=== PATIENT | female | born 1975 | race Caucasian/White ===

== ENCOUNTER 2017-05-06 14:58 | Inpatient (IN) ==
--- NOTE | 2017-05-06 19:20 | Emergency Department Note ---
Disposition Clinical Impression: Failure of outpatient treatment Cellulitis Qualifiers: Site of cellulitis: extremity Site of cellulitis of extremity: lower extremity Laterality: left Qualified Code(s): L03.116 - Cellulitis of left lower limb Disposition: Admitted As Inpatient Condition: Good Referrals: Lg Pinedo DO [Primary Care Provider] - Forms: ED Satisfaction Letter Extremity Problem HPI - General Chief complaint: ED Extremity Problem,Nontraumatic Stated complaint: Leg Pain Time Seen by Provider: 05/06/17 18:38 Source: patient Mode of arrival: private vehicle Limitations: no limitations Nursing Notes Reviewed: Yes Vital Signs Reviewed: Yes - History of Present Illness HPI Narrative: 41-year-old female history of fibromyalgia, 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 Patient reports that she was seen on the of this month at urgent care and was diagnosed with cellulitis. She was placed on Bactrim at that time. She was seen by her PCP on Wednesday and Keflex was added to her antibiotic regimen. She reports that today she was reevaluated and was referred here due to concern for swelling and that they would not be able to evaluated over the weekend. She denies any fevers at home. No nausea or vomiting. She has felt cold with chills. She reports compliance with her medications. She reports worsening swelling up into her leg and now also having pain in her right lower extremity. No history of DVT. No other complaints. Pt Subjective Complaint: extremity pain, extremity swelling Onset (ago): day(s) Consistency: constant Injury Location: left, right, lower extremity Pain Scale: 10 Quality: other (pain) Radiation: proximal Improves with: nothing Worsens with: nothing Associated symptoms: Reports: swelling. Denies: chest pain, shortness of breath , fever - Related Data Home Medications Medication Instructions Recorded Confirmed Certolizumab Pegol [Cimzia] 400 mg SQ Q4W 04/29/17 05/06/17 Gabapentin [Neurontin] 300 mg PO BID 04/29/17 05/06/17 Naproxen [Naprosyn] 500 mg PO BID 04/29/17 05/06/17 Oxycodone HCl/Acetaminophen 1 each PO QID PRN 04/29/17 05/06/17 [Percocet 10-325 mg Tablet] Tizanidine HCl 8 mg PO HS 04/29/17 05/06/17 Amitriptyline [Elavil] 25 mg PO HS 05/06/17 05/06/17 Aspirin Enteric Coated [Aspirin EC] 81 mg PO DAILY 05/06/17 05/06/17 Azathioprine [Imuran] 200 mg PO DAILY 05/06/17 05/06/17 Dicyclomine [Bentyl] 10 mg PO QID 05/06/17 05/06/17 Esomeprazole Magnesium [Nexium] 20 mg PO DAILY 05/06/17 05/06/17 Ferrous Sulfate 325 mg PO DAILY 05/06/17 05/06/17 Rizatriptan Benzoate [Maxalt] 10 mg PO DAILY PRN 05/06/17 05/06/17 Venlafaxine HCl [Venlafaxine HCl 150 mg PO DAILY 05/06/17 05/06/17 ER] cephALEXin [Keflex] 500 mg PO TID 05/06/17 05/06/17 Previous Rx's Medication Instructions Recorded Sulfamethoxazole/Trimeth DS 1 each PO BID #20 tablet 04/29/17 [Bactrim DS] Allergies Allergy/AdvReac Type Severity Reaction Status Date / Time No Known Allergies Allergy Verified 07/22/15 11:27 All systems ED: reviewed and negative except as stated. Constitutional: Reports: chills. Denies: fever Cardiovascular: Denies: chest pain Respiratory: Denies: dyspnea Gastrointestinal: Denies: abdominal pain, nausea, vomiting Musculoskeletal: Reports: joint swelling Integumentary: Reports: lesions Past Medical History - Past Medical History Attestation: Yes The following information was validated with the patient. Source: patient Medical history: Reports: fibromyalgia, GERD, migraine, other Surgical history: Reports: Psychiatric history: Reports: depression - Social History Smoking Status: Never smoker Smokeless Tobacco Status: No Alcohol use: Reports: none Drug use: Reports: none Physical Exam - General Limitations: no limitations General appearance: alert, in no apparent distress - Head Head exam: atraumatic, normocephalic, normal inspection - Eye Eye exam: Present: normal appearance, EOMI - ENT ENT exam: normal exam - Neck Neck exam: Present: normal inspection - Chest Chest inspection: Present: normal inspection, symmetric chest wall rise - Respiratory Respiratory exam: Present: normal lung sounds bilaterally - Cardiovascular Cardiovascular exam: Present: normal rhythm, tachycardia, normal heart sounds - Abdominal Exam Abdominal exam: Present: soft, Non-Tender. Absent: tenderness - Extremities Exam Extremities exam: Present: normal inspection, full ROM - Expanded Upper Extremity Exam Shoulder exam: Present: normal inspection, full ROM Arm exam: Present: normal inspection, full ROM Elbow exam: Present: normal inspection, full ROM Forearm/Wrist exam: Present: normal inspection, full ROM Hand exam: Present: normal inspection, full ROM - Expanded Lower Extremity Exam Hip/Pelvis exam: Present: normal inspection, full ROM Upper leg exam: Present: normal inspection, full ROM Knee exam: Present: normal inspection, full ROM Lower leg exam: Present: normal inspection, full ROM, swelling Ankle exam: Present: tenderness (Tenderness to palpation along the medial and lateral malleolus. There is also diffuse swelling to the left foot. Tenderness in the posterior calf on the left leg decreased range of motion of the left ankle secondary to pain.) Foot/toe exam: Present: normal inspection, tenderness (Diffuse), swelling Neurovascular/Tendon exam: Absent: motor deficit, sensory deficit, tendon deficit Course Course Narrative: Patient seen and examined. Vital signs reviewed. We will check some labs including inflammatory markers. We will also get a DVT study of the lower extremities. - Reevaluation(s) Reevaluation #1: I discussed the results of lab work with the patient. Her DVT study was negative as well. Given her elevated ESR we will get a CT scan of the lower extremity to evaluate for osteomyelitis. Reevaluation #2: Discussed results of CT scan with the patient. We will start her antibiotics here and admitted to the hospitalist service for further outpatient therapy. Vital Signs Temperature 97.7 F 05/06/17 15:11 Pulse Rate 120 05/06/17 15:11 Respiratory Rate 18 05/06/17 15:11 Blood Pressure 138/85 05/06/17 15:11 O2 Sat by Pulse Oximetry 96 05/06/17 15:11 Temperature 97.7 F 05/06/17 15:11 Pulse Rate 90 05/06/17 20:49 Respiratory Rate 18 05/06/17 20:49 Blood Pressure 145/87 05/06/17 20:49 O2 Sat by Pulse Oximetry 99 05/06/17 20:49 Oxygen Delivery Oxygen Delivery Room Air Extremity Problem, Nontraumati - MDM Narrative Medical decision making narrative: 41-year-old female presents to the ER due to left fluxion really pain and swelling. She has been treated as an outpatient with 6 days of antibiotics with Bactrim and Keflex. She has seen provider's 3 times with most recently being referred here due to worsening swelling of the left lower extremity. She denies fevers at home. Her white count is elevated over 20. Her ESR is elevated at [address] scan is read by radiology shows no fluid collection or osteomyelitis. Patient given vancomycin and IV fluids. Will be admitted to the hospitalist service. - Lab Data Lab results reviewed: Yes I reviewed the patient's lab results. Result diagrams: 05/06/17 19:40 05/06/17 19:40 Lab Results 05/06/17 05/06/17 05/06/17 Range/Units 19:40 19:40 19:40 WBC 23.9 H (4.3-11.1) K/mcL RBC 3.86 (3.82-4.97) M/mcL Hgb 9.8 L (11.5-15.4) g/dL Hct 32.4 L (35.3-44.9) % MCV 83.9 (83.0-100.0) fL MCH 25.4 L (28.0-33.3) pg MCHC 30.2 L (31.6-35.5) g/dL RDW 15.1 H (11.5-14.5) % Plt Count 363 (140-400) K/mcL MPV 8.5 L (9.4-12.4) fL Seg Neutrophils % 68.0 % Band Neutrophils % 2.0 (0-4) % Lymphocytes % 19.0 % Monocytes % 4.0 % Eosinophils % 1.0 % Metamyelocytes % 3.0 H (0) % Myelocytes % 3.0 H (0) % Neutrophils # 16.7 H (1.6-8.9) K/mcL Lymphocytes # 4.5 (0.6-4.6) K/mcL Monocytes # 1.0 (0.0-1.3) K/mcL Eosinophils # 0.2 (0.0-0.6) K/mcL Nucleated RBCs/100 WBC 0.2 H (0) /100 WBC Polychromasia 1+ A (Not Present) ESR 129 H (0-15) mm/hr Sodium 136 (136-145) mEq/L Potassium 5.2 H (3.5-4.5) mEq/L Chloride 100 (98-109) mEq/L Carbon Dioxide 25 (19-29) mEq/L BUN 11 (7-20) mg/dL Creatinine 0.81 (0.57-1.11) mg/dL Est GFR ( Amer) > 60 (> 60) Est GFR (Non-Af Amer) > 60 (> 60) BUN/Creatinine Ratio 14 (6-26) Glucose 84 (70-99) mg/dL Calculated Osmolality 281 (280-300) Calcium 9.5 (8.6-10.8) mg/dL C-Reactive Protein 351 H (Less than 5) mg/L B-Natriuretic Peptide (0-100) pg/mL 05/06/17 Range/Units 19:40 WBC (4.3-11.1) K/mcL RBC (3.82-4.97) M/mcL Hgb (11.5-15.4) g/dL Hct (35.3-44.9) % MCV (83.0-100.0) fL MCH (28.0-33.3) pg MCHC (31.6-35.5) g/dL RDW (11.5-14.5) % Plt Count (140-400) K/mcL MPV (9.4-12.4) fL Seg Neutrophils % % Band Neutrophils % (0-4) % Lymphocytes % % Monocytes % % Eosinophils % % Metamyelocytes % (0) % Myelocytes % (0) % Neutrophils # (1.6-8.9) K/mcL Lymphocytes # (0.6-4.6) K/mcL Monocytes # (0.0-1.3) K/mcL Eosinophils # (0.0-0.6) K/mcL Nucleated RBCs/100 WBC (0) /100 WBC Polychromasia (Not Present) ESR (0-15) mm/hr Sodium (136-145) mEq/L Potassium (3.5-4.5) mEq/L Chloride (98-109) mEq/L Carbon Dioxide (19-29) mEq/L BUN (7-20) mg/dL Creatinine (0.57-1.11) mg/dL Est GFR ( Amer) (> 60) Est GFR (Non-Af Amer) (> 60) BUN/Creatinine Ratio (6-26) Glucose (70-99) mg/dL Calculated Osmolality (280-300) Calcium (8.6-10.8) mg/dL C-Reactive Protein (Less than 5) mg/L B-Natriuretic Peptide 22 (0-100) pg/mL - Radiology Data Radiology results reviewed: Yes I reviewed the patient's radiology results. Lower Extremity CT 05/06/17 20:14 IMPRESSION: 1. Subcutaneous edema most pronounced at the ankle and dorsal foot with no organized drainable fluid collection identified to suggest abscess. Correlate clinically for cellulitis. 2. Nonspecific moderate tibiotalar and subtalar joint effusions. 3. Small knee effusion. 4. No evidence for osteomyelitis. D/ / Andre Mota MD / Andre Mota MD Interpreting Provider: Andre Mota MD S.[place] - [place] Situation: Demographics, MOA Background: Presenting Complaint, Relevant PMH, Meds, & Allergies Assessment: Vital Signs, Course and respsone to treatment, Exam Concerns, Patient/Family Expectation, Pertinant Lab Results, Outstanding Labs Recommendation: Barrier(s) to disposition, Recommendation based on pending studies, treatments, or consults S.Reagan Report Given to: Dr. Cong Melissa Repor Time: 21:56 Attestation Statement - Attestation Attestation: Patient was seen with resident physician. I reviewed the history, physical, assessment and plan, and agree with the findings. I also personally evaluated this patient and had [id number] time with this patient. 38 through old female presents emergency department with worsening leg pain bilaterally. Patient been seen by healthcare provider 2 times in the last week or so for cellulitis in the medial aspect left ankle. Patient notes that for the last several days however she has had increased swelling of the legs bilaterally. She has no history of blood clots but she does have factor V deficiency. Patient also denies chest pain or shortness of breath at this time. She has not had fevers or chills. She said that the cellulitis has at least been contained within the markings that were done several days ago. On examination vital signs are stable ENT is normal. Heart and lungs are normal. Abdomen is soft and nontender. Extremities 2+ pitting edema bilaterally left slightly worse than right. Mild cellulitic changes can be seen on the left medial ankle. Distal pulses are intact. Neurologically intact. ED course we will get basic lab tests, and we will do bilateral ultrasound of lower extremities to rule out DVT. We will disposition according to the findings of the workup. Patient's ESR was significantly elevated as well as her white blood cell count. This prompted a concern for osteomyelitis or deeper space infection and certainly poorly controlled cellulitis. CT scan of the leg did not reveal any cellulitis, and DVT studies were negative for clots. Patient was started on IV antibiotics and the hospitalist was notified. Seems of the patient's just had failure of treatment for cellulitis as an outpatient. We will need to admit to the hospital for further evaluation and treatment. Agree with resident physician assessment and plan.
[2017-05-06] MEDS ORDERED: 0.9 % Sodium Chloride 1,000 ML IVC ONE (19:23)
[2017-05-06 19:54] LABS: Hematocrit 32.4 % (35.3-44.9); Hemoglobin 9.8 g/dL (11.5-15.4); Mean Corpuscular HGB Conc 30.2 g/dL (31.6-35.5); Mean Corpuscular Hemoglobin 25.4 pg (28.0-33.3); Mean Corpuscular Volume 83.9 fL (83.0-100.0); Mean Platelet Volume 8.5 fL (9.4-12.4); Nucleated Red Blood Cells 0.2 /100 WBC (0); Platelet Count 363 K/mcL (140-400); Red Blood Count 3.86 M/mcL (3.82-4.97); Red Cell Distribution Width 15.1 % (11.5-14.5)
[2017-05-06 20:06] LABS: BUN/Creatinine Ratio 14 (6-26); Blood Urea Nitrogen 11 mg/dL (7-20); Calcium 9.5 mg/dL (8.6-10.8); Carbon Dioxide 25 mEq/L (19-29); Chloride 100 mEq/L (98-109); Glucose 84 mg/dL (70-99); Osmolality,Calculated 281 (280-300); Potassium 5.2 mEq/L (3.5-4.5); Sodium 136 mEq/L (136-145); eGFR For African Americans > 60 (> 60); eGFR For Non-African Americans > 60 (> 60)
[2017-05-06] MEDS ORDERED: *HR* Morphine 2 MG/ML SYRINGE IVP ONE (20:20)
[2017-05-06 20:39] LABS: C-Reactive Protein 351 mg/L (Less than 5)
[2017-05-06 20:43] LABS: Eosinophils # 0.2 K/mcL (0.0-0.6); Lymphocytes # 4.5 K/mcL (0.6-4.6); Neutrophils # 16.7 K/mcL (1.6-8.9)
[2017-05-06 20:46] LABS: Polychromasia 1+ (Not Present)
[2017-05-06] MEDS ORDERED: Ampicillin/Sulbactam 3,000 MG in 0.9 % Sodium Chloride Mini Bag 100 ML IVPB ONE (21:11)
[2017-05-06] MEDS ORDERED: Vancomycin 1,750 MG in D5% in Water 250 ML IVPB ONE (21:55)
[2017-05-06] MEDS ORDERED: Calcium Gluconate 1,000 MG in D5% in Water 100 ML IVPB ONE (23:30)
[2017-05-06] MEDS ORDERED: Sodium Bicarbonate 50 MEQ/50 ML VIAL IVP ONE (23:30)
[2017-05-07] MEDS ORDERED: 0.9 % Sodium Chloride 1,000 ML IVC ONE (00:32)
--- NOTE | 2017-05-07 00:46 | Internal Med History&Physical ---
Date of Encounter: 05/07/17 Time of Encounter: 00:44 Assessment and Plan (1) Factor 5 Leiden mutation, heterozygous Current visit: Yes Status: Acute She was diagnosed after counseling after several family members were diagnosed with 5 Leiden in hand venous thromboembolism. She never had venous thromboembolism before. she is an aspirin prophylactically. Doppler were performed in the emergency room and reportedly negative for DVT. (2) Cellulitis Current visit: Yes Status: Acute Feels outpatient therapy she received about 6 days of Bactrim and 2 days of Keflex. Will start vancomycin and Zosyn. Blood cultures will be performed. Significantly elevated ESR and CRP. CT scan of the public shows no evidence of abscess or indication for osteomyelitis. She has a wound in the left for the past 3 weeks foot which is probably the source Qualifiers: Site of cellulitis: extremity Site of cellulitis of extremity: lower extremity Laterality: left Qualified Code(s): L03.116 - Cellulitis of left lower limb Internal Medicine - H&P: HPI Chief complaint: leg swelling and pain History of present illness: Ms. Duran is a 41 year old female with history of factor 5 Leiden mutation with no previous history of Venous thromboembolism, history of Crohn's disease on immunosuppressant medications, history of ankylosing spondylitis, presents emergency room today with left ankle pain and swelling. Patient was diagnosed with cellulitis of the left ankle 6 days ago was started on Bactrim completed 6 days so for 2 days ago she had seen her PCP for follow-up and she was also started on Keflex to which is been compliant. She notices no improvement in her symptoms in fact she notices increased pain redness and swelling in the left ankle. She also started experiencing fevers up to 101 at home. She had developed 1st performed in the emergency room shows no evidence of DVT. She had a wound in the left foot 3 weeks ago with no drainage currently. Past Med Surg Social Fam HX - Past Medical History Medical history: fibromyalgia, GERD, migraine, other Psychiatric history: depression - Past Surgical History Surgical History: - Social History Smoking Status: Never smoker Smokeless Tobacco Status: No Alcohol use: none Drug use: none - Family History Father Living Status: Still Living Hx Family Cardiac Disorders: Yes Hx Family Endocrine Disorder: Yes Internal Medicine - H&P: Meds Certolizumab Pegol [Cimzia] 400 mg SQ Q4W 04/29/17 [History] Gabapentin [Neurontin] 300 mg PO BID 04/29/17 [History] Naproxen [Naprosyn] 500 mg PO BID 04/29/17 [History] Oxycodone HCl/Acetaminophen [Percocet 10-325 mg Tablet] 1 each PO QID PRN [History] Sulfamethoxazole/Trimeth DS [Bactrim DS] 1 each PO BID #20 tablet 04/29/17 [Rx] Tizanidine HCl 8 mg PO HS 04/29/17 [History] Amitriptyline [Elavil] 25 mg PO HS 05/06/17 [History] Aspirin Enteric Coated [Aspirin EC] 81 mg PO DAILY 05/06/17 [History] Azathioprine [Imuran] 200 mg PO DAILY 05/06/17 [History] Dicyclomine [Bentyl] 10 mg PO QID 05/06/17 [History] Esomeprazole Magnesium [Nexium] 20 mg PO DAILY 05/06/17 [History] Ferrous Sulfate 325 mg PO DAILY 05/06/17 [History] Rizatriptan Benzoate [Maxalt] 10 mg PO DAILY PRN 05/06/17 [History] Venlafaxine HCl [Venlafaxine HCl ER] 150 mg PO DAILY 05/06/17 [History] cephALEXin [Keflex] 500 mg PO TID 05/06/17 [History] Allergies No Known Allergies Allergy (Verified 07/22/15 11:27) All Systems PM: A 10-system review of systems was performed and is negative for pertinent findings except as documented above in the HPI. Review of systems: 10 point review systems is negative except for HPI - Constitutional Vitals: Temp Pulse Resp BP Pulse Ox 98.8 F 94 14 128/83 100 05/06/17 22:44 05/06/17 22:44 05/06/17 22:44 05/06/17 22:44 05/06/17 22:44 Exam: Gen.: patient is alert oriented times 3 not in distress cardiac: Normal S1, S2, no additional sounds or murmurs chest: Clear to auscultation Abdomen: Soft, nontender No rebound lower extremity redness warmth tenderness around medial malleolus Neuro: no focal deficits Internal Med - H&P Results - Labs CBC & Chem 7: 05/06/17 19:40 06/15/17 19:40
[2017-05-07] MEDS ORDERED: Piperacillin/Tazobactam 3.375 GM in D5% in Water (Mini-Bag+) 100 ML IVPB SCH ×2 (01:00→03:00)
[2017-05-07] MEDS ORDERED: Vancomycin 1,750 MG in D5% in Water 250 ML IVPB SCH (01:00)
[2017-05-07 01:01] LABS: Hematocrit 26.8 % (35.3-44.9); Hemoglobin 8.5 g/dL (11.5-15.4); Mean Corpuscular HGB Conc 31.7 g/dL (31.6-35.5); Mean Corpuscular Hemoglobin 25.7 pg (28.0-33.3); Mean Platelet Volume 7.8 fL (9.4-12.4); Nucleated Red Blood Cells 0.4 /100 WBC (0); Platelet Count 339 K/mcL (140-400); Red Blood Count 3.31 M/mcL (3.82-4.97); Red Cell Distribution Width 14.6 % (11.5-14.5)
[2017-05-07] MEDS: *HR* Morphine 2 MG/ML SYRINGE IVP PRN ×3 (01:15→09:38)
[2017-05-07 01:22] LABS: BUN/Creatinine Ratio 12 (6-26); Blood Urea Nitrogen 10 mg/dL (7-20); Calcium 8.8 mg/dL (8.6-10.8); Carbon Dioxide 27 mEq/L (19-29); Chloride 101 mEq/L (98-109); Glucose 93 mg/dL (70-99); Magnesium 1.7 mg/dL (1.6-2.6); Osmolality,Calculated 279 (280-300); Potassium 4.4 mEq/L (3.5-4.5); Sodium 135 mEq/L (136-145); eGFR For African Americans > 60 (> 60); eGFR For Non-African Americans > 60 (> 60)
[2017-05-07 01:24] LABS: C-Reactive Protein 288 mg/L (Less than 5)
[2017-05-07 01:31] LABS: Eosinophils # 0.4 K/mcL (0.0-0.6); Lymphocytes # 3.9 K/mcL (0.6-4.6); Monocytes # 0.8 K/mcL (0.0-1.3); Neutrophils # 13.2 K/mcL (1.6-8.9)
[2017-05-07 01:34] LABS: Hypochromasia Present (Not Present)
[2017-05-07] MEDS: 0.9 % Sodium Chloride 1,000 ML IVC SCH ×2 (03:00→16:46)
[2017-05-07] MEDS: *HR* Heparin 5,000 UNIT/ML VIAL SQ SCH ×3 (04:23→20:41)
[2017-05-07] MEDS: Ondansetron 4 MG/2 ML VIAL IVP PRN ×2 (04:23→20:58)
[2017-05-07] MEDS ORDERED: Calcium Gluconate 1,000 MG in D5% in Water 100 ML IVPB ONE (04:30)
[2017-05-07] MEDS: Vancomycin 1,750 MG in D5% in Water 500 ML IVPB SCH ×2 (08:15→20:42)
[2017-05-07] MEDS: *HR* HYDROcodone/Acet 5/325 mg TABLET PO PRN ×2 (08:48→23:09)
[2017-05-07] MEDS: Venlafaxine XR (24 HR) 150 MG CAP.ER.24H PO SCH (09:44)
[2017-05-07] MEDS: Gabapentin 300 MG CAPSULE PO SCH ×2 (09:44→20:41)
[2017-05-07] MEDS: Aspirin Enteric Coated 81 MG Tablet PO SCH (09:44)
[2017-05-07] MEDS: Piperacillin/Tazobactam 3.375 GM in D5% in Water (Mini-Bag+) 100 ML IVPB SCH ×2 (11:03→19:06)
--- NOTE | 2017-05-07 16:10 | Internal Med Progress Note ---
Date of Encounter: 05/07/17 Time of Encounter: 16:08 - Assessment and plan (1) Cellulitis Current Visit: Yes Status: Acute Qualifiers: Site of cellulitis: extremity Site of cellulitis of extremity: lower extremity Laterality: left Qualified Code(s): L03.116 - Cellulitis of left lower limb (2) Pain in left ankle and joints of left foot Current Visit: Yes Status: Acute Qualifiers: Qualified Code(s): M25.572 - Pain in left ankle and joints of left foot (3) Effusion of ankle joint, left Current Visit: Yes Status: Acute - Subjective Interval history: Ms. Tiffany Duran is a 41-year-old female who was admitted for ankle cellulitis but she notices almost a week ago but did not seek any attention right away. Apparently she was in the words just 3 weeks ago and had some separation around her left big toe. Although she is ambulatory but it hurts when she be a weight on her foot. CT ankle was done which showed effusion and tibiotalar and knee joint besides soft tissue swelling but no evidence of osteomyelitis. However her CRP and her white count is quite elevated. No bandemia though. Patient is currently on vancomycin and Zosyn. Considering the fact that her CRP was more than 350 and white cell count was more than 20,000 which is coming down we will consult podiatry. I did check with the orthopedist on-call who has suggested to consult podiatry for ankle effusion. - Constitutional Vitals: Temp Pulse Resp BP Pulse Ox 98.9 F 98 16 117/64 96 05/07/17 09:51 05/07/17 09:51 05/07/17 09:51 05/07/17 09:51 05/07/17 09:51 Internal Medicine: Result - Labs CBC & Chem 7: 05/07/17 00:52 05/07/17 00:52 Consult Discharge Plan - Plan Referrals: Lg Pinedo DO [Primary Care Provider] -
--- NOTE | 2017-05-07 18:30 | Podiatry Consult Note ---
Date of Encounter: 05/07/17 Time of Encounter: 05:50 Assessment and Plan (1) Cellulitis Current visit: Yes Status: Acute left ankle localized cellulitis appears to be responding to IV abx. c/w IV abx per primary team. fluid aspirated from left ankle joint per procedure note. cultures sent to lab and fluid to cytology. f/u cultures of fluid, and fluid cytology for total cell count, wbc, protein, glucose, uric acid, stds, etc. ordered lymes Ab for AM. ice and elvation. monitor wbc count. if does not conintue to trend better will consider MRI but on CT no drainage abscess identified. Qualifiers: Site of cellulitis: extremity Site of cellulitis of extremity: lower extremity Laterality: left Qualified Code(s): L03.116 - Cellulitis of left lower limb History of Present Illness HPI: Ms. Duran is a 41 year old female who says a week ago she developed some redness around her left ankle on the inside. She did not think much of it at first and it started getting worse so she saw a practicioner who gave her bactrim. It was not getting better and she saw her family doctor who add keflex. There was no improvement in the redness when she was re-evaluated so she was referred to [place] for admission. She says it is a severe pain and swelling around her left ankle. denies any recent cough. She says the redness has gone down since being admitted and getting IV antibiotics. She does not remember being bit by any insects or spiders. She did go hiking a week ago and has a superficial wound on her left foot near the big toe from hitting a stick but says she has not had any redness around this area of her foot and only the left ankle. Does not remember seeing any or pulling off any ticks of her body. Denies injury. Past Med Surg Social Fam HX - Past Medical History Medical history: fibromyalgia, GERD, migraine, other Psychiatric history: depression - Past Surgical History Surgical History: - Social History Smoking Status: Never smoker Smokeless Tobacco Status: No Alcohol use: none Drug use: none - Family History Father Living Status: Still Living Hx Family Cardiac Disorders: Yes Hx Family Endocrine Disorder: Yes Medications and Allergies Certolizumab Pegol [Cimzia] 400 mg SQ Q4W 04/29/17 [History] Gabapentin [Neurontin] 300 mg PO BID 04/29/17 [History] Naproxen [Naprosyn] 500 mg PO BID 04/29/17 [History] Oxycodone HCl/Acetaminophen [Percocet 10-325 mg Tablet] 1 each PO QID PRN [History] Sulfamethoxazole/Trimeth DS [Bactrim DS] 1 each PO BID #20 tablet 04/29/17 [Rx] Tizanidine HCl 8 mg PO HS 04/29/17 [History] Amitriptyline [Elavil] 25 mg PO HS 05/06/17 [History] Aspirin Enteric Coated [Aspirin EC] 81 mg PO DAILY 05/06/17 [History] Azathioprine [Imuran] 200 mg PO DAILY 05/06/17 [History] Dicyclomine [Bentyl] 10 mg PO QID 05/06/17 [History] Esomeprazole Magnesium [Nexium] 20 mg PO DAILY 05/06/17 [History] Ferrous Sulfate 325 mg PO DAILY 05/06/17 [History] Rizatriptan Benzoate [Maxalt] 10 mg PO DAILY PRN 05/06/17 [History] Venlafaxine HCl [Venlafaxine HCl ER] 150 mg PO DAILY 05/06/17 [History] cephALEXin [Keflex] 500 mg PO TID 05/06/17 [History] Allergies No Known Allergies Allergy (Verified 07/22/15 11:27) All Systems Reviewed: A 10-system review of systems was performed and is negative for pertinent findings except as documented above in the HPI. Physical Exam - Constitutional Vitals: Temp Pulse Resp BP Pulse Ox 98.2 F 91 16 111/72 99 05/07/17 15:51 05/07/17 15:51 05/07/17 15:51 05/07/17 15:51 05/07/17 15:51 General appearance: no acute distress Exam: left ankle moderate pitting edema, CFT < 3 sec x 5 digits left foot. left medial ankle resolving erythema, no openings or puncture sites at this location. no lymphangitic streaking, superficial circular wound medial aspect of the 1st MTP joint without erythema. pain with motion of the left ankle joint. sensation intact to light touch. Results - Labs Result Diagrams: 05/07/17 00:52 05/07/17 00:52 Labs: Abnormal lab results WBC 19.4 K/mcL (4.3-11.1) H 05/07/17 00:52 RBC 3.31 M/mcL (3.82-4.97) L 05/07/17 00:52 Hgb 8.5 g/dL (11.5-15.4) L 05/07/17 00:52 Hct 26.8 % (35.3-44.9) L 05/07/17 00:52 MCV 81.0 fL (83.0-100.0) L 05/07/17 00:52 MCH 25.7 pg (28.0-33.3) L 05/07/17 00:52 RDW 14.6 % (11.5-14.5) H 05/07/17 00:52 MPV 7.8 fL (9.4-12.4) L 05/07/17 00:52 Metamyelocytes % 2.0 % (0) H 05/07/17 00:52 Myelocytes % 4.0 % (0) H 05/07/17 00:52 Neutrophils # 13.2 K/mcL (1.6-8.9) H 05/07/17 00:52 Nucleated RBCs/100 WBC 0.4 /100 WBC (0) H 05/07/17 00:52 Polychromasia 1+ (Not Present) A 05/06/17 19:40 Hypochromasia Present (Not Present) A 05/07/17 00:52 ESR 129 mm/hr (0-15) H 05/06/17 19:40 Sodium 135 mEq/L (136-145) L 05/07/17 00:52 Calculated Osmolality 279 (280-300) L 05/07/17 00:52 C-Reactive Protein 256 mg/L (Less than 5) H 05/07/17 15:50 All other labs normal. Consult Discharge Plan - Plan Referrals: Lg Pinedo, [Primary Care Provider] -
--- NOTE | 2017-05-07 18:44 | Procedure Note ---
Date of procedure: 05/07/17 Pre-op diagnosis: left ankle effusion Post-op diagnosis: same Procedure: aspiration of left ankle joint The nature of the procedure (left ankle joint aspiration) was explained to the patient in detail. The risks vs benefits were also explained as well as potential complications of the procedure infection, bleeding, swelling, numbness , tingling, nerve damage, worsening of pain, wound healing problems, etc. prior to procedure. Patient gave verbal consent to proceed with left ankle joint aspiration. The left ankle was prepped with betadine. The side and location ( left ankle joint) were confirmed and a #18 gauge need on a syringe was inserted into the left ankle joint from the lateral side of the ankle joint where there was no cellulitis of the skin. 3cc of yellow brown fluid was obtained. The fluid was sent to microbiology and to cytology for evaluation. Adequate hemostasis was present at the conclusion and bandaid placed over aspiration site. JOSE bandage placed on foot. Ice and elevation okay. Anesthesia: none Surgeon: Gómez Gutierrez Pathology: other (fluid from left ankle sent to cytology, cultures sent to micro for gram stain, aerobic and anaerobic culture) Condition: stable Disposition: floor
[2017-05-07 18:55] LABS: Source,Synovial Fluid LEFT ANKLE
[2017-05-07 19:15] LABS: Glucose,Synovial Fluid 74 mg/dL (No Ref Range)
[2017-05-07 19:34] LABS: Appearance,Synovial Fluid Clear (Clear-Hazy); Color,Synovial Fluid Straw (Straw)
[2017-05-08] MEDS: Piperacillin/Tazobactam 3.375 GM in D5% in Water (Mini-Bag+) 100 ML IVPB SCH ×3 (02:58→18:36)
[2017-05-08 05:01] LABS: Hemoglobin 7.9 g/dL (11.5-15.4); Mean Corpuscular HGB Conc 30.4 g/dL (31.6-35.5); Mean Corpuscular Hemoglobin 25.2 pg (28.0-33.3); Mean Corpuscular Volume 82.8 fL (83.0-100.0); Mean Platelet Volume 8.1 fL (9.4-12.4); Nucleated Red Blood Cells 0.2 /100 WBC (0); Platelet Count 351 K/mcL (140-400); Red Blood Count 3.14 M/mcL (3.82-4.97)
[2017-05-08] MEDS: 0.9 % Sodium Chloride 1,000 ML IVC SCH ×2 (05:10→15:35)
[2017-05-08] MEDS: *HR* Heparin 5,000 UNIT/ML VIAL SQ SCH ×3 (05:11→21:01)
[2017-05-08 05:29] LABS: Alanine Aminotransferase 15 Units/L (0-55); Albumin/Globulin Ratio 0.4 (1.1-2.2); Alkaline Phosphatase 117 Units/L (38-126); Aspartate Amino Transferase 9 Units/L (5-34); BUN/Creatinine Ratio 9 (6-26); Bilirubin,Total 0.3 mg/dL (0.2-1.2); Blood Urea Nitrogen 8 mg/dL (7-20); Calcium 8.8 mg/dL (8.6-10.8); Carbon Dioxide 25 mEq/L (19-29); Chloride 106 mEq/L (98-109); Globulin 4.5 g/dL (2.4-3.5); Glucose 93 mg/dL (70-99); Osmolality,Calculated 286 (280-300); Potassium 4.3 mEq/L (3.5-4.5); Sodium 139 mEq/L (136-145); Total Protein 6.5 g/dL (6.0-8.3); eGFR For African Americans > 60 (> 60); eGFR For Non-African Americans > 60 (> 60)
[2017-05-08 05:43] LABS: Lymphocytes # 3.7 K/mcL (0.6-4.6); Monocytes # 0.8 K/mcL (0.0-1.3); Neutrophils # 13.8 K/mcL (1.6-8.9)
[2017-05-08 05:44] LABS: Platelet Estimate Normal (Normal); Polychromasia 1+ (Not Present)
[2017-05-08] MEDS: Venlafaxine XR (24 HR) 150 MG CAP.ER.24H PO SCH (08:45)
[2017-05-08] MEDS: Aspirin Enteric Coated 81 MG Tablet PO SCH (08:45)
[2017-05-08] MEDS: Gabapentin 300 MG CAPSULE PO SCH ×2 (08:45→21:01)
[2017-05-08] MEDS: *HR* HYDROcodone/Acet 5/325 mg TABLET PO PRN ×2 (08:56→22:15)
[2017-05-08] MEDS: Vancomycin 1,750 MG in D5% in Water 500 ML IVPB SCH (09:29)
--- NOTE | 2017-05-08 12:36 | Electrocardiograph Report ---
[address] [address] Test Date: 2017-05-07 Pat Name: Tiffany Duran Department: 114 Room: [facility] Gender: F Tobacco Curer: CPB : 1975 Requested By: Jeffy Cordova Order Number: [id number] Reading MD: German Daniels Measurements Intervals [place] Rate: 99 P: 50 MI: 157 QRS: 37 QRSD: 81 T: 30 QT: 311 QTc: 368 Interpretive Statements SINUS RHYTHM LOW QRS VOLTAGE IN PRECORDIAL LEADS Electronically Signed On 05-08-2017 12:34:22 EDT by German Daniels
--- NOTE | 2017-05-08 13:46 | Venous Imaging Report ---
LE Venous Duplex Patient Name:Tiffany Duran Order Number:[id number] Procedure Date:05/06/2017 Date:1975Age:41 yrs Gender:Female Location:[facility] ED Room #: ER30 Gill Box Fixer:Miranda Gregory RDCS Referring MD:Khai Werner DO director of golf:Lg Pinedo DO Reading MD:Fortino Beltrán MD , FACS Primary Indications:Swelling of limb Secondary Indications: Risk Factors Yes/No Anticoagulants Yes Factor Five Yes Impressions: Bilateral lower extremity: normal superficial and deep exam. Recommendations: Preliminary given to Dr Werner in ED. Findings Venous Duplex Results: Right: Venous imaging of the lower extremity reveals full patency and normal vessel compressibility of the right distal iliac, right common femoral, right superficial femoral, right popliteal, right posterior tibial, right peroneal, right great saphenous and right lesser saphenous. Doppler signals in the evaluated veins were normal. Left: Venous imaging of the lower extremity reveals full patency and normal vessel compressibility of the left distal iliac, left common femoral, left superficial femoral, left popliteal, left posterior tibial, left peroneal, left great saphenous and left lesser saphenous. Doppler signals in the evaluated veins were normal. Prior Study: No prior study available for comparison. Lower Extremity Venous Duplex Side Vein Compress Spontaneous Flow Augment Diameter (cm) Depth (cm) Right Distal Iliac Normal Yes Phasic Yes Right Common Femoral Normal Yes Phasic Yes Right Superficial Femoral Normal Yes Phasic Yes Right Popliteal Normal Yes Phasic Yes Right Posterior Tibial Normal Yes Phasic Yes Right Peroneal Normal Yes Phasic Yes Right Great Saphenous Normal Yes Phasic Yes Right Lesser Saphenous Normal Yes Phasic Yes Left Distal Iliac Normal Yes Phasic Yes Left Common Femoral Normal Yes Phasic Yes Left Superficial Femoral Normal Yes Phasic Yes Left Popliteal Normal Yes Phasic Yes Left Posterior Tibial Normal Yes Phasic Yes Left Peroneal Normal Yes Phasic Yes Left Great Saphenous Normal Yes Phasic Yes Left Lesser Saphenous Normal Yes Phasic Yes Updated by Fortino Beltrán MD, FACS on 05/08/2017 1:39:02 PM Fortino Beltrán MD electronically signed on 05/08/2017 1:39:24 PM with status of Final
--- NOTE | 2017-05-08 14:42 | Internal Med Progress Note ---
Date of Encounter: 05/08/17 Time of Encounter: 14:40 - Assessment and plan (1) Cellulitis Current Visit: Yes Status: Acute Qualifiers: Site of cellulitis: extremity Site of cellulitis of extremity: lower extremity Laterality: left Qualified Code(s): L03.116 - Cellulitis of left lower limb (2) Pain in left ankle and joints of left foot Current Visit: Yes Status: Acute Qualifiers: Qualified Code(s): M25.572 - Pain in left ankle and joints of left foot (3) Effusion of ankle joint, left Current Visit: Yes Status: Acute (4) Anemia Current Visit: Yes Status: Acute Qualifiers: Anemia type: unspecified type Qualified Code(s): D64.9 - Anemia, unspecified - Subjective Interval history: Ms. Tiffany Duran is a 41-year-old female who was admitted for ankle cellulitis but she notices almost a week ago but did not seek any attention right away. Apparently she was in the words just 3 weeks ago and had some separation around her left big toe. Although she is ambulatory but it hurts when she be a weight on her foot. CT ankle was done which showed effusion and tibiotalar and knee joint besides soft tissue swelling but no evidence of osteomyelitis. However her CRP and her white count is quite elevated. No bandemia though. Patient is currently on vancomycin and Zosyn. Considering the fact that her CRP was more than 350 and white cell count was more than 20,000 which is coming down we will consult podiatry. I did check with the orthopedist on-call who has suggested to consult podiatry for ankle effusion. Podiatry has already date left ankle aspiration and cultures are pending. Hemoglobin is only 8.2. Check stool Hemoccult and iron studies. - Constitutional Vitals: Temp Pulse Resp BP Pulse Ox 99.0 F 108 18 120/74 94 05/08/17 10:51 05/08/17 10:51 05/08/17 10:51 05/08/17 10:51 05/08/17 10:51 - Head Head exam: Present: atraumatic, normocephalic - Eye Eye exam: Present: PERRL, conjuntiva pink, sclera anicteric Pupils: Present: PERRL - Neck Neck exam general surgery: Present: supple, trachea midline. Absent: lymphadenopathy - Respiratory Respiratory exam: Present: CTAB. Absent: accessory muscle use, rales, rhonchi, wheezes - Cardiovascular Cardiovascular exam: Present: RRR, +S1, +S2. Absent: diastolic murmur, gallop, rubs, systolic murmur - GI/Abdominal GI/Abdominal exam: Present: normal bowel sounds, soft, no peritoneal signs. Absent: distended, tenderness - Extremities Exam Extremities exam: Present: tenderness, warm, radial pulses palpable and symetrical. Absent: calf tenderness, cyanotic, pedal edema Additional comments: Right buttock area examined. Redness has crossed over the markers but skin is relatively less shiny and less red. It is laminating machine tender and indurated. Of the 3 incision wounds which are packed to still losing some drainage but one is becoming dry. - Neurological Exam Neurological exam: Present: CN II-XII intact, oriented X3, no focal deficits. Absent: pronater drift, facial droop, speech deficit - Skin Skin exam: Present: dry, intact Internal Medicine: Result - Labs CBC & Chem 7: 05/08/17 04:09 05/08/17 04:09 Labs: Short CBC 05/08/17 Range/Units 04:09 WBC 18.7 H (4.3-11.1) K/mcL Hgb 7.9 L (11.5-15.4) g/dL Hct 26.0 L (35.3-44.9) % Plt Count 351 (140-400) K/mcL Neutrophils # 13.8 H (1.6-8.9) K/mcL BMP 05/08/17 04:09 Sodium 139 Potassium 4.3 Chloride 106 Carbon Dioxide 25 BUN 8 Creatinine 0.89 Glucose 93 Calcium 8.8 Liver Function 05/08/17 Range/Units 04:09 Total Bilirubin 0.3 (0.2-1.2) mg/dL AST 9 (5-34) Units/L ALT 15 (0-55) Units/L Alkaline Phosphatase 117 (38-126) Units/L Albumin 2.0 L (3.5-5.0) g/dL Consult Discharge Plan - Plan Referrals: Lg Pinedo DO [Primary Care Provider] -
[2017-05-08] MEDS: Vancomycin 1,250 MG in D5% in Water 250 ML IVPB SCH (21:01)
[2017-05-08] MEDS: *HR* Morphine 2 MG/ML SYRINGE IVP PRN (23:37)
[2017-05-09] MEDS: Piperacillin/Tazobactam 3.375 GM in D5% in Water (Mini-Bag+) 100 ML IVPB SCH ×3 (02:50→19:59)
[2017-05-09] MEDS ORDERED: *HR* Morphine 2 MG/ML SYRINGE IVP ONE (02:59)
[2017-05-09] MEDS: *HR* HYDROcodone/Acet 5/325 mg TABLET PO PRN ×3 (04:08→23:26)
[2017-05-09] MEDS: 0.9 % Sodium Chloride 1,000 ML IVC SCH ×2 (04:09→15:57)
[2017-05-09] MEDS: *HR* Heparin 5,000 UNIT/ML VIAL SQ SCH ×3 (05:25→21:47)
[2017-05-09 05:40] LABS: Hematocrit 25.4 % (35.3-44.9); Hemoglobin 7.8 g/dL (11.5-15.4); Mean Corpuscular HGB Conc 30.7 g/dL (31.6-35.5); Mean Corpuscular Hemoglobin 25.8 pg (28.0-33.3); Mean Corpuscular Volume 84.1 fL (83.0-100.0); Nucleated Red Blood Cells 0.1 /100 WBC (0); Platelet Count 349 K/mcL (140-400); Red Blood Count 3.02 M/mcL (3.82-4.97); Red Cell Distribution Width 15.1 % (11.5-14.5)
[2017-05-09 05:55] LABS: % Iron Saturation 10 % (15-50); Alanine Aminotransferase 11 Units/L (0-55); Albumin 2.1 g/dL (3.5-5.0); Albumin/Globulin Ratio 0.5 (1.1-2.2); Alkaline Phosphatase 106 Units/L (38-126); Aspartate Amino Transferase 12 Units/L (5-34); BUN/Creatinine Ratio 7 (6-26); Bilirubin,Total 0.3 mg/dL (0.2-1.2); Blood Urea Nitrogen 6 mg/dL (7-20); Calcium 8.6 mg/dL (8.6-10.8); Carbon Dioxide 24 mEq/L (19-29); Chloride 107 mEq/L (98-109); Globulin 4.6 g/dL (2.4-3.5); Glucose 103 mg/dL (70-99); Iron 19 mcg/dL (50-170); Osmolality,Calculated 282 (280-300); Sodium 137 mEq/L (136-145); Total Protein 6.7 g/dL (6.0-8.3); Transferrin 134 mg/dL (180-382); eGFR For African Americans > 60 (> 60); eGFR For Non-African Americans > 60 (> 60)
[2017-05-09 06:08] LABS: Band Neutrophils % 7.3 % (0-4); Basophils # 0.4 K/mcL (0.0-0.2); Basophils % 1.8 %; Eosinophils # 0.4 K/mcL (0.0-0.6); Eosinophils % 1.8 %; Lymphocytes # 2.9 K/mcL (0.6-4.6); Lymphocytes % 14.5 %; Metamyelocytes % 5.5 % (0); Monocytes # 0.4 K/mcL (0.0-1.3); Monocytes % 1.8 %; Neutrophils # 15.1 K/mcL (1.6-8.9); Platelet Estimate Normal (Normal); Polychromasia 1+ (Not Present); Reactive Lymphocytes Present (Not Present); Segmented Neutrophils % 67.3 %
[2017-05-09] MEDS: Vancomycin 1,250 MG in D5% in Water 250 ML IVPB SCH ×2 (08:07→20:00)
[2017-05-09] MEDS: Aspirin Enteric Coated 81 MG Tablet PO SCH (08:08)
[2017-05-09] MEDS: Gabapentin 300 MG CAPSULE PO SCH ×2 (08:08→19:59)
[2017-05-09] MEDS: Venlafaxine XR (24 HR) 150 MG CAP.ER.24H PO SCH (08:08)
[2017-05-09] MEDS ORDERED: Ketorolac 15 MG/ML VIAL IVP PRN (09:05)
[2017-05-09] MEDS ORDERED: Furosemide 20 MG/2 ML VIAL IVP ONE (15:08)
--- NOTE | 2017-05-09 15:15 | Internal Med Progress Note ---
Date of Encounter: 05/09/17 Time of Encounter: 15:12 - Assessment and plan (1) Cellulitis Current Visit: Yes Status: Acute Qualifiers: Site of cellulitis: extremity Site of cellulitis of extremity: lower extremity Laterality: left Qualified Code(s): L03.116 - Cellulitis of left lower limb (2) Pain in left ankle and joints of left foot Current Visit: Yes Status: Acute Qualifiers: Qualified Code(s): M25.572 - Pain in left ankle and joints of left foot (3) Effusion of ankle joint, left Current Visit: Yes Status: Acute (4) Anemia Current Visit: Yes Status: Chronic Qualifiers: Anemia type: iron deficiency Iron deficiency anemia type: unspecified iron deficiency Qualified Code(s): D50.9 - Iron deficiency anemia, unspecified (5) Localized swelling of both lower legs Current Visit: Yes Status: Acute - Subjective Interval history: Ms. Tiffany Duran is a 41-year-old female who was admitted for ankle cellulitis but she notices almost a week ago but did not seek any attention right away. Apparently she was in the words just 3 weeks ago and had some separation around her left big toe. Although she is ambulatory but it hurts when she be a weight on her foot. CT ankle was done which showed effusion and tibiotalar and knee joint besides soft tissue swelling but no evidence of osteomyelitis. However her CRP and her white count is quite elevated. No bandemia though. Patient is currently on vancomycin and Zosyn. Considering the fact that her CRP was more than 350 and white cell count was more than 20,000 which is coming down we will consult podiatry. I did check with the orthopedist on-call who has suggested to consult podiatry for ankle effusion. Podiatry has already date left ankle aspiration and cultures are pending. Hemoglobin is only 8.2. Check stool Hemoccult and iron studies. 05/09 complaining of bilateral lower extremity pain and swelling especially swelling of knees more on the left and right. Examination of her legs raised the question of positive Homans sign. She is on the heparin prophylaxis. Ultrasound of the leg was done on admission which was negative however considering current change and repeat DVT ultrasound today. Her knees are swollen 2) left knee can be noticed with some effusion. We will wait to see the results of ultrasound. Low-dose Lasix given. She also has iron deficiency anemia hemoglobin is dropped to 7.8. She has history of Crohn disease and is known to have chronic anemia. Since she is iron deficient therefore will give iron dextrose 200 mg 3 days to cover at least half of apparent deficit and after that she can be improved. Because of leg swelling is not clear and that is why we are trying to rule it out by doing ultrasound of the lower extremity to rule out DVT. Her CRP is coming down and rash is improving. - Constitutional Vitals: Temp Pulse Resp BP Pulse Ox 98.5 F 105 16 118/74 99 05/09/17 10:23 05/09/17 10:23 05/09/17 10:23 05/09/17 10:23 05/09/17 10:23 - Head Head exam: Present: atraumatic, normocephalic - Eye Eye exam: Present: PERRL, conjuntiva pink, sclera anicteric Pupils: Present: PERRL - Neck Neck exam general surgery: Present: supple, trachea midline. Absent: lymphadenopathy - Respiratory Respiratory exam: Present: CTAB. Absent: accessory muscle use, rales, rhonchi, wheezes - Cardiovascular Cardiovascular exam: Present: RRR, +S1, +S2. Absent: diastolic murmur, gallop, rubs, systolic murmur - GI/Abdominal GI/Abdominal exam: Present: normal bowel sounds, soft, no peritoneal signs. Absent: distended, tenderness - Extremities Exam Extremities exam: Present: calf tenderness, joint swelling, pedal edema, tenderness, warm, radial pulses palpable and symetrical. Absent: cyanotic Additional comments: Gen. bilateral knee swelling more on left than on right quite tender. Patient has bilateral lower extremity swelling more on left than on right patient has left foot/ankle is swelling quite significant. Homans sign is negative. Good capillary refill though. - Neurological Exam Neurological exam: Present: CN II-XII intact, oriented X3, no focal deficits. Absent: pronater drift, facial droop, speech deficit - Skin Skin exam: Present: dry, intact Internal Medicine: Result - Labs CBC & Chem 7: 05/09/17 05:10 05/09/17 05:10 Labs: Short CBC 05/09/17 Range/Units 05:10 WBC 20.2 H (4.3-11.1) K/mcL Hgb 7.8 L (11.5-15.4) g/dL Hct 25.4 L (35.3-44.9) % Plt Count 349 (140-400) K/mcL Neutrophils # 15.1 H (1.6-8.9) K/mcL BMP 05/09/17 05:10 Sodium 137 Potassium 4.0 Chloride 107 Carbon Dioxide 24 BUN 6 L Creatinine 0.82 Glucose 103 H Calcium 8.6 Liver Function 05/09/17 Range/Units 05:10 Total Bilirubin 0.3 (0.2-1.2) mg/dL AST 12 (5-34) Units/L ALT 11 (0-55) Units/L Alkaline Phosphatase 106 (38-126) Units/L Albumin 2.1 L (3.5-5.0) g/dL Consult Discharge Plan - Plan Referrals: Lg Pinedo DO [Primary Care Provider] -
[2017-05-09] MEDS: Ketorolac 15 MG/ML VIAL IVP PRN ×2 (15:57→21:47)
[2017-05-09] MEDS ORDERED: Iron Dextran Complex 200 MG in 0.9 % Sodium Chloride 500 ML IVPB SCH (17:00)
[2017-05-09] MEDS: IRON DEXTRAN COMPLEX IVPB SCH (18:16)
[2017-05-09] MEDS: SODIUM CHLORIDE 0.9% IVPB SCH (18:16)
[2017-05-10] MEDS: Piperacillin/Tazobactam 3.375 GM in D5% in Water (Mini-Bag+) 100 ML IVPB SCH ×3 (03:07→22:23)
[2017-05-10 04:11] LABS: Hemoglobin 7.8 g/dL (11.5-15.4); Mean Corpuscular Hemoglobin 25.4 pg (28.0-33.3); Mean Corpuscular Volume 84.7 fL (83.0-100.0); Mean Platelet Volume 8.1 fL (9.4-12.4); Nucleated Red Blood Cells 0.2 /100 WBC (0); Platelet Count 385 K/mcL (140-400); Red Blood Count 3.07 M/mcL (3.82-4.97); Red Cell Distribution Width 15.1 % (11.5-14.5)
[2017-05-10 04:28] LABS: Alanine Aminotransferase 11 Units/L (0-55); Albumin/Globulin Ratio 0.4 (1.1-2.2); Alkaline Phosphatase 101 Units/L (38-126); Aspartate Amino Transferase 14 Units/L (5-34); BUN/Creatinine Ratio 9 (6-26); Bilirubin,Total 0.2 mg/dL (0.2-1.2); Blood Urea Nitrogen 8 mg/dL (7-20); C-Reactive Protein 130 mg/L (Less than 5); Calcium 8.7 mg/dL (8.6-10.8); Carbon Dioxide 25 mEq/L (19-29); Chloride 107 mEq/L (98-109); Globulin 4.7 g/dL (2.4-3.5); Glucose 98 mg/dL (70-99); Osmolality,Calculated 288 (280-300); Potassium 3.8 mEq/L (3.5-4.5); Sodium 140 mEq/L (136-145); Total Protein 6.7 g/dL (6.0-8.3); eGFR For African Americans > 60 (> 60); eGFR For Non-African Americans > 60 (> 60)
[2017-05-10 04:50] LABS: Anisocytosis 1+ (Not Present); Eosinophils # 0.8 K/mcL (0.0-0.6); Monocytes # 1.7 K/mcL (0.0-1.3); Neutrophils # 13.4 K/mcL (1.6-8.9); Platelet Estimate Normal (Normal)
[2017-05-10] MEDS: *HR* Heparin 5,000 UNIT/ML VIAL SQ SCH ×3 (05:11→22:24)
[2017-05-10] MEDS: Ketorolac 15 MG/ML VIAL IVP PRN (05:11)
[2017-05-10] MEDS: 0.9 % Sodium Chloride 1,000 ML IVC SCH ×2 (07:27→22:21)
[2017-05-10] MEDS ORDERED: *HR* HYDROcodone/Acet 5/325 mg TABLET ONE (08:14)
[2017-05-10] MEDS: *HR* HYDROcodone/Acet 5/325 mg TABLET PO PRN ×2 (08:31→22:21)
[2017-05-10] MEDS: Venlafaxine XR (24 HR) 150 MG CAP.ER.24H PO SCH (08:32)
[2017-05-10] MEDS: Gabapentin 300 MG CAPSULE PO SCH ×2 (08:32→22:21)
[2017-05-10] MEDS: Aspirin Enteric Coated 81 MG Tablet PO SCH (08:32)
[2017-05-10] MEDS: Vancomycin 1,000 MG in D5% in Water 250 ML IVPB SCH ×2 (10:39→22:22)
--- NOTE | 2017-05-10 12:20 | Gastroenterology Consult Note ---
<Lg Cortez - Last Filed: 05/10/17 12:18> Date of Encounter: 05/10/17 Time of Encounter: 11:10 - Assessment and plan (1) IBD (inflammatory bowel disease) Current Visit: Yes Status: Acute Assessment and plan: Last colonoscopy 07/22/[address] Landers showed inflammation found secondary to left-sided ulcerative colitis from rectum to transverse colon moderate in severity from rectum to sigmoid and mild in the descending and transverse colon. Plan for EGD and colonoscopy tomorrow. Clear liquid diet today, no red or purple. NPO at midnight. If unable tolerate NuLytely please use MiraLAX prep. If not clear by 6 AM, give 2 tap water enemas. (2) Anemia Current Visit: Yes Status: Chronic Assessment and plan: Continue to monitor CBC and transfuse PRBC as needed. Hgb 7.8 with MCV 84.7 and iron 19.FOBT was positive. Plan for EGD and colonoscopy tomorrow. Clear liquid diet today, no red or purple. NPO at midnight. If unable tolerate NuLytely please use MiraLAX prep. If not clear by 6 AM, give 2 tap water enemas. Qualifiers: Anemia type: iron deficiency Iron deficiency anemia type: unspecified iron deficiency Qualified Code(s): D50.9 - Iron deficiency anemia, unspecified (3) Cellulitis Current Visit: Yes Status: Acute Assessment and plan: Management per primary team. Qualifiers: Site of cellulitis: extremity Site of cellulitis of extremity: lower extremity Laterality: left Qualified Code(s): L03.116 - Cellulitis of left lower limb (4) Factor 5 Leiden mutation, heterozygous Current Visit: Yes Status: Acute - Time Spent With Patient Total time spent is greater than 50% in coordination of care (as documented) at patient's floor/unit and/or counseling patient: GI History of Present Illness - Data of Consult Patient: known to practice within the last 3 years Consult date: 05/10/17 Requesting Physician: Jeffy Cordova MD - Consult Narrative Reason for consult: OLEGARIO History of present illness: Ms. Duran is a 41 year old female with PMHx factor 5 Leiden mutation with no previous history of venous thromboembolism, Crohn's disease on immunosuppressant medications, chronic anemia, ankylosing spondylitis, presented to the ED with left ankle cellulitis. She was commenced with cellulitis 6 days prior to admission and was started on Bactrim which was then changed to Keflex. She reported no improvement in her symptoms and did not fact notice increased pain, redness, and swelling of her left ankle. Podiatry was consulted. We were consulted to evaluate her anemia. She was noted to be iron deficient with iron level of 19. Hgb on admission was 9.8 and today Hgb 7.8. Hgb 12.3 on 12/17/2016. Procedures: Colonoscopy 07/22/2015 Dr. Landers: Inflammation found secondary to left -sided ulcerative colitis from rectum to transverse colon moderate in severity from rectum to sigmoid and mild in the descending and transverse colon. EGD 07/22/2015 Dr. Landers: Duodenitis. NSAIDs: ASA Anticoagulation: None Past Med Surg Social Fam HX - Past Medical History Medical history: fibromyalgia, GERD, migraine, other Psychiatric history: depression - Past Surgical History Surgical History: - Social History Smoking Status: Never smoker Smokeless Tobacco Status: No Alcohol use: none Drug use: none - Family History Father Living Status: Still Living Hx Family Cardiac Disorders: Yes Hx Family Endocrine Disorder: Yes - Gastrointestinal Gastrointestinal: Present: as per HPI - Constitutional Constitutional: as per HPI - EENT Eyes: as per HPI Ears: Present: as per HPI Nose, mouth and throat: Present: as per HPI - Cardiovascular Cardiovascular ROS: Present: as per HPI - Respiratory Respiratory IM: Present: as per HPI - Genitourinary Genitourinary: Absent: change in color, Urinary frequency - Neurological ROS Neurological GI: Present: as per HPI - Hematologic/Lymphatic Hematologic/Lymphatic pediatric: Present: as per HPI - Musculoskeletal Musculoskeletal ROS GI: Present: as per HPI - Integumentary Integumentary GI: Present: as per HPI - Psychiatric ROS Psychiatric GI: Present: as per HPI - Endocrine Endocrine IM: Present: as per HPI - Constitutional Vitals: Temp Pulse Resp BP Pulse Ox 98.2 F 88 14 117/80 98 05/10/17 11:36 05/10/17 11:36 05/10/17 11:36 05/10/17 11:36 05/10/17 11:36 General appearance: Present: cooperative, A&O X 3, no acute distress, answers questions appropriately - Head Head exam: Present: atraumatic, normocephalic - Eye Eye exam: Present: normal appearance, sclera anicteric - ENT ENT exam: Present: mucous membranes moist - Neck Neck exam general surgery: Present: normal inspection, trachea midline - Respiratory Respiratory exam: Present: CTAB. Absent: decreased breath sounds, rales, rhonchi - Cardiovascular Cardiovascular exam: Present: RRR, +S1, +S2 - GI/Abdominal GI/Abdominal exam: Present: soft, no peritoneal signs. Absent: distended, firm , guarding, tenderness - Rectal Rectal exam: Present: deferred - Extremities Exam Extremities exam: Present: warm - Neurological Exam Neurological exam: Present: no focal deficits - Psychiatric Psychiatric exam: Present: normal affect, normal mood - Skin Skin exam: Present: dry, intact, normal color, warm Results - Labs CBC & Chem 7: 05/10/17 03:46 05/10/17 03:46 Labs: Last Result ESR 129 mm/hr (0-15) H 05/06/17 19:40 Calcium 8.7 mg/dL (8.6-10.8) 05/10/17 03:46 Iron 19 mcg/dL (50-170) L 05/09/17 05:10 % Saturation 10 % (15-50) L 05/09/17 05:10 Transferrin 134 mg/dL (180-382) L 05/09/17 05:10 C-Reactive Protein 130 mg/L (Less than 5) H 05/10/17 03:46 Stool Occult Blood Positive (Negative) A 05/08/17 08:40 Entire Visit Hgb 7.8 g/dL (11.5-15.4) L 05/10/17 03:46 Hct 26.0 % (35.3-44.9) L 05/10/17 03:46 Total Bilirubin 0.2 mg/dL (0.2-1.2) 05/10/17 03:46 AST 14 Units/L (5-34) 05/10/17 03:46 ALT 11 Units/L (0-55) 05/10/17 03:46 Consult Discharge Plan - Plan Referrals: Lg Pinedo DO [Primary Care Provider] - <Eder Landers - Last Filed: 05/11/17 13:44> Date of Encounter: 05/10/17 Time of Encounter: 15:00 - Time Spent With Patient Total time spent is greater than 50% in coordination of care (as documented) at patient's floor/unit and/or counseling patient: GI History of Present Illness - Data of Consult Requesting Physician: Jeffy Cordova MD - Consult Narrative History of present illness: Ms. Duran is a 41 year old female - Constitutional Vitals: Temp Pulse Resp BP Pulse Ox 97.4 F L 85 85 146/96 100 05/11/17 12:53 05/11/17 12:53 05/11/17 12:53 05/11/17 12:53 05/11/17 12:53 Results - Labs CBC & Chem 7: 05/11/17 04:34 05/11/17 04:34 Labs: Last Result ESR 129 mm/hr (0-15) H 05/06/17 19:40 Calcium 9.0 mg/dL (8.6-10.8) 05/11/17 04:34 Iron 19 mcg/dL (50-170) L 05/09/17 05:10 % Saturation 10 % (15-50) L 05/09/17 05:10 Transferrin 134 mg/dL (180-382) L 05/09/17 05:10 C-Reactive Protein 116 mg/L (Less than 5) H 05/11/17 04:34 Stool Occult Blood Positive (Negative) A 05/08/17 08:40 Entire Visit Hgb 7.4 g/dL (11.5-15.4) L 05/11/17 04:34 Hct 24.9 % (35.3-44.9) L 05/11/17 04:34 Total Bilirubin 0.4 mg/dL (0.2-1.2) 05/11/17 04:34 AST 13 Units/L (5-34) 05/11/17 04:34 ALT 13 Units/L (0-55) 05/11/17 04:34 - Impressions Impressions Ankle MRI 05/10/17 15:58 IMPRESSION: 1. No osteomyelitis. 2. Circumferential ankle and dorsal forefoot soft tissue edema compatible cellulitis. No drainable fluid collection. 3. Small nonspecific tibiotalar and posterior subtalar joint effusions may be reactive. If there is any clinical concern for septic arthritis please consider arthrocentesis. 4. Mild posterior tibial and flexor digitorum longus tenosynovitis. 5. Moderate peroneal tenosynovitis. 6. Moderate extensor digitorum longus and mild anterior tibial tenosynovitis. 7. Mild to moderate midfoot degenerative changes. D/ / Otoniel Fuller MD / Otoniel Fuller MD Interpreting Provider: Otoniel Fuller MD Foot MRI 05/10/17 15:58 IMPRESSION: 1. No osteomyelitis. 2. Circumferential ankle and dorsal forefoot soft tissue edema compatible cellulitis. No drainable fluid collection. 3. Small nonspecific tibiotalar and posterior subtalar joint effusions may be reactive. If there is any clinical concern for septic arthritis please consider arthrocentesis. 4. Mild posterior tibial and flexor digitorum longus tenosynovitis. 5. Moderate peroneal tenosynovitis. 6. Moderate extensor digitorum longus and mild anterior tibial tenosynovitis. 7. Mild to moderate midfoot degenerative changes. D/ / Otoniel Fuller MD / Otoniel Fuller MD Interpreting Provider: Otoniel Fuller MD - Attending Attestation I examined this patient and my medical decision-making was reviewed with the SAMPLE DISPLAY PREPARER/PA/Advanced Practice Nurse/Resident Physician. I agree with the documented findings, disposition and treatment plan as described except to the extent set forth below.
--- NOTE | 2017-05-10 16:27 | Podiatry Progress Note ---
Date of Encounter: 05/10/17 Time of Encounter: 15:40 - Assessment and Plan (1) Cellulitis Current Visit: Yes Status: Acute Resolved to left ankle. Qualifiers: Site of cellulitis: extremity Site of cellulitis of extremity: lower extremity Laterality: left Qualified Code(s): L03.116 - Cellulitis of left lower limb (2) Effusion of ankle joint, left Current Visit: Yes Status: Acute (3) Pain in left ankle and joints of left foot Current Visit: Yes Status: Acute s/p left ankle aspiration by Dr. Gutierrez on 05/07/17. Fluid sent to cytology. Prelim: No growth. Lyme Disease Total antibody: negative Blood cultures: NGTD WBC: 21 Will order an MRI of the left foot and ankle due to elevated WBC. Will continue to monitor patient closely. Qualifiers: Chronicity: acute Qualified Code(s): M25.572 - Pain in left ankle and joints of left foot Subjective Interval history: Patient is lying bed. 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 She denies any fever, chills, n /v overnight. Patient is s/p a left ankle aspiration by Dr. Gutierrez on 05/07/17. WBC continues to remain elevated at 21. Patient stats she does have a medical history significant for ankylosing spondylitis. Patient is scheduled to go for an EGD and colonoscopy tomorrow. Objective - Vital Signs Vital Signs: Vital Signs Temp Pulse Resp BP Pulse Ox 05/10/17 15:54 97.9 F 98 14 131/81 100 05/10/17 11:36 98.2 F 88 14 117/80 98 05/10/17 06:48 99.4 F 97 16 121/78 94 05/10/17 03:00 98.4 F 88 15 97/64 98 05/09/17 23:50 99.7 F H 107 15 91/56 99 05/09/17 20:46 98.9 F 86 14 128/83 100 Intake and Output 05/10/17 05/10/17 05/10/17 07:59 15:59 23:59 Intake Total 1450 / 1450 790 / 790 Output Total 1225 / 1225 Balance 225 / 225 790 / 790 Intake: IV Fluids 1200 / 1200 350 / 350 0.9 % Sodium Chloride 1, 1000 / 1000 000 ML @ 100 mls/hr IVC . Q10H [facility] Rx#:[id number] Zosyn 3.375 GM In 200 / 200 100 / 100 Dextrose 5% (Minibag+) 100 ML 100 ML @ 25 mls/hr IVPB Q8H [facility] Rx#: [id number] Vancocin 1,000 MG In 250 / 250 Dextrose 5% 250 ML @ 167 mls/hr IVPB Q12H [facility] Rx#: [id number] Oral 250 / 250 440 / 440 Output: Urine 1225 / 1225 Other: Meal Lunch Percent of Meal Consumed 100% Stool Size Moderate Stool Consistency soft Stool Color Brown # Bowel Movements 2 - Exam Exam: General appearance: alert awake oriented X 3. Calm and pleasant, no acute distress.. Vascular: Pedal pulses +1/4 DP/PT , No evidence of cyanosis, pallor or rubor, Edema graded at 2+/4 left foot, 1+/4 right foot, Skin temperature warm, No varicosities or varicose veins noted, no calf pain with manual compression, capillary refill time is immediate to digits.. Neurologic: Intact sensation with light touch. Integument: Cellulitis has resolved to the right medial ankle, light brown discoloration to the medial left ankle with 2+ swelling, dried scab o the medial aspect of the 1st metatarsal head left foot, no evidence of bacterial infection. Crack to the left heel with dried blood observed, no active bleeding. - Lab Result Diagrams: 05/10/17 03:46 05/10/17 03:46 Labs: Abnormal lab results WBC 21.0 K/mcL (4.3-11.1) H 05/10/17 03:46 RBC 3.07 M/mcL (3.82-4.97) L 05/10/17 03:46 Hgb 7.8 g/dL (11.5-15.4) L 05/10/17 03:46 Hct 26.0 % (35.3-44.9) L 05/10/17 03:46 MCH 25.4 pg (28.0-33.3) L 05/10/17 03:46 MCHC 30.0 g/dL (31.6-35.5) L 05/10/17 03:46 RDW 15.1 % (11.5-14.5) H 05/10/17 03:46 MPV 8.1 fL (9.4-12.4) L 05/10/17 03:46 Metamyelocytes % 5.5 % (0) H 05/09/17 05:10 Myelocytes % 2.0 % (0) H 05/08/17 04:09 Neutrophils # 13.4 K/mcL (1.6-8.9) H 05/10/17 03:46 Lymphocytes # 5.0 K/mcL (0.6-4.6) H 05/10/17 03:46 Monocytes # 1.7 K/mcL (0.0-1.3) H 05/10/17 03:46 Eosinophils # 0.8 K/mcL (0.0-0.6) H 05/10/17 03:46 Basophils # 0.4 K/mcL (0.0-0.2) H 05/09/17 05:10 Nucleated RBCs/100 WBC 0.2 /100 WBC (0) H 05/10/17 03:46 Reactive Lymphocytes Present (Not Present) A 05/09/17 05:10 Polychromasia 1+ (Not Present) A 05/09/17 05:10 Hypochromasia Present (Not Present) A 05/07/17 00:52 Anisocytosis 1+ (Not Present) A 05/10/17 03:46 ESR 129 mm/hr (0-15) H 05/06/17 19:40 Iron 19 mcg/dL (50-170) L 05/09/17 05:10 % Saturation 10 % (15-50) L 05/09/17 05:10 Transferrin 134 mg/dL (180-382) L 05/09/17 05:10 C-Reactive Protein 130 mg/L (Less than 5) H 05/10/17 03:46 Albumin 2.0 g/dL (3.5-5.0) L 05/10/17 03:46 Globulin 4.7 g/dL (2.4-3.5) H 05/10/17 03:46 Albumin/Globulin Ratio 0.4 (1.1-2.2) L 05/10/17 03:46 Synovial RBC 0.011 M/mcl (0.000-0.002) H 05/07/17 18:00 Synovial Tot Nuc Cell 8270 TNC/mcL (0-200) H 05/07/17 18:00 Stool Occult Blood Positive (Negative) A 05/08/17 08:40 Vancomycin Trough 20.4 mcg/mL (10-20) H* 05/10/17 08:07 Microbiology, Last 48 Hours 05/07/17 18:00 Anaerobic Culture - Preliminary Left Ankle At this time, no anaerobic growth is present. The culture will be finalized after 5 days of incubation. 05/07/17 18:00 Wound Culture - Final Left Ankle No growth. Consult Discharge Plan - Plan Referrals: Lg Pinedo DO [Primary Care Provider] -
--- NOTE | 2017-05-10 16:59 | Internal Med Progress Note ---
Date of Encounter: 05/10/17 Time of Encounter: 16:56 - Assessment and plan (1) Cellulitis Current Visit: Yes Status: Acute Qualifiers: Site of cellulitis: extremity Site of cellulitis of extremity: lower extremity Laterality: left Qualified Code(s): L03.116 - Cellulitis of left lower limb (2) Pain in left ankle and joints of left foot Current Visit: Yes Status: Acute Qualifiers: Chronicity: acute Qualified Code(s): M25.572 - Pain in left ankle and joints of left foot (3) Effusion of ankle joint, left Current Visit: Yes Status: Acute (4) Anemia Current Visit: Yes Status: Chronic Qualifiers: Anemia type: iron deficiency Iron deficiency anemia type: unspecified iron deficiency Qualified Code(s): D50.9 - Iron deficiency anemia, unspecified (5) Localized swelling of both lower legs Current Visit: Yes Status: Acute - Subjective Interval history: Ms. Tiffany Duran is a 41-year-old female who was admitted for ankle cellulitis but she notices almost a week ago but did not seek any attention right away. Apparently she was in the words just 3 weeks ago and had some separation around her left big toe. Although she is ambulatory but it hurts when she be a weight on her foot. CT ankle was done which showed effusion and tibiotalar and knee joint besides soft tissue swelling but no evidence of osteomyelitis. However her CRP and her white count is quite elevated. No bandemia though. Patient is currently on vancomycin and Zosyn. Considering the fact that her CRP was more than 350 and white cell count was more than 20,000 which is coming down we will consult podiatry. I did check with the orthopedist on-call who has suggested to consult podiatry for ankle effusion. Podiatry has already date left ankle aspiration and cultures are pending. Hemoglobin is only 8.2. Check stool Hemoccult and iron studies. 05/09 complaining of bilateral lower extremity pain and swelling especially swelling of knees more on the left and right. Examination of her legs raised the question of positive Homans sign. She is on the heparin prophylaxis. Ultrasound of the leg was done on admission which was negative however considering current change and repeat DVT ultrasound today. Her knees are swollen 2) left knee can be noticed with some effusion. We will wait to see the results of ultrasound. Low-dose Lasix given. She also has iron deficiency anemia hemoglobin is dropped to 7.8. She has history of Crohn disease and is known to have chronic anemia. Since she is iron deficient therefore will give iron dextrose 200 mg 3 days to cover at least half of apparent deficit and after that she can be improved. Because of leg swelling is not clear and that is why we are trying to rule it out by doing ultrasound of the lower extremity to rule out DVT. Her CRP is coming down and rash is improving. 05/10 bilateral leg pain pain has improved but she still has lower extremity swelling. Ultrasound was negative. Patient vancomycin level is toxic range therefore pharmacy is holding vancomycin. Continue following CBC CMP and Vanco trough level is her CRP. I will obtain an echocardiogram. Gastroenterology has seen the patient for iron deficiency anemia and plan to do EGD and colonoscopy tomorrow. Patient - Constitutional Vitals: Temp Pulse Resp BP Pulse Ox 97.9 F 98 14 131/81 100 05/10/17 15:54 05/10/17 15:54 05/10/17 15:54 05/10/17 15:54 05/10/17 15:54 Internal Medicine: Result - Labs CBC & Chem 7: 05/10/17 03:46 05/10/17 03:46 Labs: Short CBC 05/10/17 Range/Units 03:46 WBC 21.0 H (4.3-11.1) K/mcL Hgb 7.8 L (11.5-15.4) g/dL Hct 26.0 L (35.3-44.9) % Plt Count 385 (140-400) K/mcL Neutrophils # 13.4 H (1.6-8.9) K/mcL BMP 05/10/17 03:46 Sodium 140 Potassium 3.8 Chloride 107 Carbon Dioxide 25 BUN 8 Creatinine 0.93 Glucose 98 Calcium 8.7 Liver Function 05/10/17 Range/Units 03:46 Total Bilirubin 0.2 (0.2-1.2) mg/dL AST 14 (5-34) Units/L ALT 11 (0-55) Units/L Alkaline Phosphatase 101 (38-126) Units/L Albumin 2.0 L (3.5-5.0) g/dL Consult Discharge Plan - Plan Referrals: Lg Pinedo, [Primary Care Provider] -
[2017-05-10] MEDS ORDERED: SODIUM CHLORIDE/NAHCO3/KCL/PEG 4,000 ML SOLN.RECON PO ONE (17:00)
[2017-05-10] MEDS: SODIUM CHLORIDE 0.9% IVPB SCH (18:14)
[2017-05-10] MEDS: IRON DEXTRAN COMPLEX IVPB SCH (18:14)
[2017-05-11] MEDS: Ketorolac 15 MG/ML VIAL IVP PRN (03:55)
[2017-05-11 05:48] LABS: Basophils # 0.1 K/mcL (0.0-0.2); Basophils % 0.3 %; Eosinophils # 0.2 K/mcL (0.0-0.6); Eosinophils % 1.2 %; Hematocrit 24.9 % (35.3-44.9); Hemoglobin 7.4 g/dL (11.5-15.4); Immature Granulocytes % 6.7 % (0-4); Lymphocytes # 3.3 K/mcL (0.6-4.6); Lymphocytes % 16.5 %; Mean Corpuscular HGB Conc 29.7 g/dL (31.6-35.5); Mean Corpuscular Hemoglobin 25.5 pg (28.0-33.3); Mean Corpuscular Volume 85.9 fL (83.0-100.0); Mean Platelet Volume 8.2 fL (9.4-12.4); Monocytes # 1.9 K/mcL (0.0-1.3); Monocytes % 9.5 %; Neutrophils # 13.3 K/mcL (1.6-8.9); Nucleated Red Blood Cells 0.1 /100 WBC (0); Platelet Count 412 K/mcL (140-400); Red Cell Distribution Width 15.3 % (11.5-14.5); Segmented Neutrophils % 65.8 %
[2017-05-11] MEDS: *HR* HYDROcodone/Acet 5/325 mg TABLET PO PRN ×3 (05:53→23:06)
[2017-05-11] MEDS: Piperacillin/Tazobactam 3.375 GM in D5% in Water (Mini-Bag+) 100 ML IVPB SCH (05:54)
[2017-05-11] MEDS: *HR* Heparin 5,000 UNIT/ML VIAL SQ SCH (05:54)
[2017-05-11 06:09] LABS: Alanine Aminotransferase 13 Units/L (0-55); Albumin 2.1 g/dL (3.5-5.0); Albumin/Globulin Ratio 0.4 (1.1-2.2); Alkaline Phosphatase 114 Units/L (38-126); Aspartate Amino Transferase 13 Units/L (5-34); BUN/Creatinine Ratio 5 (6-26); Bilirubin,Total 0.4 mg/dL (0.2-1.2); Blood Urea Nitrogen 4 mg/dL (7-20); Carbon Dioxide 25 mEq/L (19-29); Chloride 108 mEq/L (98-109); Globulin 4.9 g/dL (2.4-3.5); Glucose 89 mg/dL (70-99); Osmolality,Calculated 288 (280-300); Potassium 3.7 mEq/L (3.5-4.5); Sodium 141 mEq/L (136-145); eGFR For African Americans > 60 (> 60); eGFR For Non-African Americans > 60 (> 60)
[2017-05-11 06:21] LABS: C-Reactive Protein 116 mg/L (Less than 5)
--- NOTE | 2017-05-11 08:51 | Internal Med Progress Note ---
Date of Encounter: 05/11/17 Time of Encounter: 08:49 - Assessment and plan (1) Cellulitis Current Visit: Yes Status: Acute Qualifiers: Site of cellulitis: extremity Site of cellulitis of extremity: lower extremity Laterality: left Qualified Code(s): L03.116 - Cellulitis of left lower limb (2) Pain in left ankle and joints of left foot Current Visit: Yes Status: Acute Qualifiers: Chronicity: acute Qualified Code(s): M25.572 - Pain in left ankle and joints of left foot (3) Effusion of ankle joint, left Current Visit: Yes Status: Acute (4) Anemia Current Visit: Yes Status: Chronic Qualifiers: Anemia type: iron deficiency Iron deficiency anemia type: unspecified iron deficiency Qualified Code(s): D50.9 - Iron deficiency anemia, unspecified (5) Localized swelling of both lower legs Current Visit: Yes Status: Acute - Subjective Interval history: Ms. Tiffany Duran is a 41-year-old female who was admitted for ankle cellulitis but she notices almost a week ago but did not seek any attention right away. Apparently she was in the words just 3 weeks ago and had some separation around her left big toe. Although she is ambulatory but it hurts when she be a weight on her foot. CT ankle was done which showed effusion and tibiotalar and knee joint besides soft tissue swelling but no evidence of osteomyelitis. However her CRP and her white count is quite elevated. No bandemia though. Patient is currently on vancomycin and Zosyn. Considering the fact that her CRP was more than 350 and white cell count was more than 20,000 which is coming down we will consult podiatry. I did check with the orthopedist on-call who has suggested to consult podiatry for ankle effusion. Podiatry has already date left ankle aspiration and cultures are pending. Hemoglobin is only 8.2. Check stool Hemoccult and iron studies. 05/09 complaining of bilateral lower extremity pain and swelling especially swelling of knees more on the left and right. Examination of her legs raised the question of positive Homans sign. She is on the heparin prophylaxis. Ultrasound of the leg was done on admission which was negative however considering current change and repeat DVT ultrasound today. Her knees are swollen 2) left knee can be noticed with some effusion. We will wait to see the results of ultrasound. Low-dose Lasix given. She also has iron deficiency anemia hemoglobin is dropped to 7.8. She has history of Crohn disease and is known to have chronic anemia. Since she is iron deficient therefore will give iron dextrose 200 mg 3 days to cover at least half of apparent deficit and after that she can be improved. Because of leg swelling is not clear and that is why we are trying to rule it out by doing ultrasound of the lower extremity to rule out DVT. Her CRP is coming down and rash is improving. 05/10 bilateral leg pain pain has improved but she still has lower extremity swelling. Ultrasound was negative. Patient vancomycin level is toxic range therefore pharmacy is holding vancomycin. Continue following CBC CMP and Vanco trough level is her CRP. I will obtain an echocardiogram. Gastroenterology has seen the patient for iron deficiency anemia and plan to do EGD and colonoscopy tomorrow. Patient 05/11 clinically left foot and ankle cellulitis has improved but he still has elevated white count while cultures are negative and she is on vancomycin. I will consult infectious disease. MRI of the foot and ankle did not show any osteomyelitis or abscess but multiple tenosynovium-itis. Patient has history of Crohn's disease ankylosing spondylitis and fibromyalgia. Her Imuran which was on hold has been restarted. We will check with infectious disease that if it is okay as I suspect that some of her elevated white count and joint swelling could be result of her tenosynovium-itis. Her lites ultrasound for DVT was negative 2. Hemoglobin has gone down to 7.4 perhaps a slight due to frequent blood draws but do not suspect her actively bleeding however she does have apparent deficiency anemia and Hemoccult-positive stools. Gastroenterology is consulted. - Constitutional Vitals: Temp Pulse Resp BP Pulse Ox 99.3 F 86 18 125/84 95 05/11/17 07:04 05/11/17 07:04 05/11/17 07:04 05/11/17 07:04 05/11/17 07:04 - Head Head exam: Present: atraumatic, normocephalic - Eye Eye exam: Present: PERRL, conjuntiva pink, sclera anicteric Pupils: Present: PERRL - Neck Neck exam general surgery: Present: supple, trachea midline. Absent: lymphadenopathy - Respiratory Respiratory exam: Present: CTAB. Absent: accessory muscle use, rales, rhonchi, wheezes - Cardiovascular Cardiovascular exam: Present: RRR, +S1, +S2. Absent: diastolic murmur, gallop, rubs, systolic murmur - GI/Abdominal GI/Abdominal exam: Present: normal bowel sounds, soft, no peritoneal signs. Absent: distended, tenderness - Extremities Exam Extremities exam: Present: warm, radial pulses palpable and symetrical. Absent : calf tenderness, cyanotic, pedal edema Additional comments: After Imuran as started swelling of knees and ankles has gone down and pain has improved also. All joints have full range of motion without any significant effusion - Neurological Exam Neurological exam: Present: CN II-XII intact, oriented X3, no focal deficits. Absent: pronater drift, facial droop, speech deficit - Skin Skin exam: Present: dry, intact Internal Medicine: Result - Labs CBC & Chem 7: 05/11/17 04:34 05/11/17 04:34 Labs: Short CBC 05/11/17 Range/Units 04:34 WBC 20.2 H (4.3-11.1) K/mcL Hgb 7.4 L (11.5-15.4) g/dL Hct 24.9 L (35.3-44.9) % Plt Count 412 H (140-400) K/mcL Neutrophils # 13.3 H (1.6-8.9) K/mcL BMP 05/11/17 04:34 Sodium 141 Potassium 3.7 Chloride 108 Carbon Dioxide 25 BUN 4 L Creatinine 0.88 Glucose 89 Calcium 9.0 Liver Function 05/11/17 Range/Units 04:34 Total Bilirubin 0.4 (0.2-1.2) mg/dL AST 13 (5-34) Units/L ALT 13 (0-55) Units/L Alkaline Phosphatase 114 (38-126) Units/L Albumin 2.1 L (3.5-5.0) g/dL - Impressions Impressions Ankle MRI 05/10/17 15:58 IMPRESSION: 1. No osteomyelitis. 2. Circumferential ankle and dorsal forefoot soft tissue edema compatible cellulitis. No drainable fluid collection. 3. Small nonspecific tibiotalar and posterior subtalar joint effusions may be reactive. If there is any clinical concern for septic arthritis please consider arthrocentesis. 4. Mild posterior tibial and flexor digitorum longus tenosynovitis. 5. Moderate peroneal tenosynovitis. 6. Moderate extensor digitorum longus and mild anterior tibial tenosynovitis. 7. Mild to moderate midfoot degenerative changes. D/ / Otoniel Fuller MD / Otoniel Fuller MD Interpreting Provider: Otoniel Fuller MD Foot MRI 05/10/17 15:58 IMPRESSION: 1. No osteomyelitis. 2. Circumferential ankle and dorsal forefoot soft tissue edema compatible cellulitis. No drainable fluid collection. 3. Small nonspecific tibiotalar and posterior subtalar joint effusions may be reactive. If there is any clinical concern for septic arthritis please consider arthrocentesis. 4. Mild posterior tibial and flexor digitorum longus tenosynovitis. 5. Moderate peroneal tenosynovitis. 6. Moderate extensor digitorum longus and mild anterior tibial tenosynovitis. 7. Mild to moderate midfoot degenerative changes. D/ / Otoniel Fuller MD / Otoniel Fuller MD Interpreting Provider: Otoniel Fuller MD Consult Discharge Plan - Plan Referrals: Lg Pinedo DO [Primary Care Provider] -
[2017-05-11] MEDS: 0.9 % Sodium Chloride 1,000 ML IVC SCH (09:41)
[2017-05-11] MEDS: Aspirin Enteric Coated 81 MG Tablet PO SCH (09:42)
[2017-05-11] MEDS: Gabapentin 300 MG CAPSULE PO SCH ×2 (09:42→20:08)
[2017-05-11] MEDS: Venlafaxine XR (24 HR) 150 MG CAP.ER.24H PO SCH ×2 (09:42→19:21)
[2017-05-11] MEDS: Vancomycin 1,000 MG in D5% in Water 250 ML IVPB SCH (10:43)
--- NOTE | 2017-05-11 11:52 | Infectious Disease Consult ---
Date of Encounter: 05/11/17 Time of Encounter: 11:41 Assessment and Plan (1) Sepsis Status: Acute Assessment and plan: The patient had two SIRS criteria on admission (tachycardia, leukocytosis). Lactic acid was normal. IV fluid resuscitation managed per the primary team. Likely secondary to cellulitis. Improved. The patient continues to have tachycardia, but appears less frequent. WBC remains elevated. Blood cultures drawn 05/07/17 are NGTD. Qualifiers: Sepsis type: sepsis due to unspecified organism Qualified Code(s): A41.9 - Sepsis, unspecified organism (2) Leukocytosis Status: Acute Assessment and plan: WBC 23.9 on admission. Continues to be elevated around 20 despite 6 days of broad-spectrum IV antibiotics. Physical exam and ROS unyielding. Etiology unclear, but consider non-infectious etiologies of the patient's persistent leukocytosis. Discontinue antibiotics and observe. If the patient spikes a fever of > 100.4, repeat blood cultures x 2 sets and re- start antibiotics. Qualifiers: Leukocytosis type: unspecified Qualified Code(s): D72.829 - Elevated white blood cell count, unspecified (3) Cellulitis Status: Acute Assessment and plan: Causative organism unclear. Location: Left foot and ankle. CT scan of the left LE showed findings consistent with cellulitis, moderate tibiotalar and subtalar joint effusions, and a small left knee effusion. No OM noted. ESR 129 and CRP 351. MRI of the left foot and ankle 05/10/17 showed no osteomyelitis, but there were findings consistent with cellulitis, non-specific joint effusions, and tenosynovitis. Clinically, the cellulitis appears to have resolved, but the patient continues to complain of left ankle and foot pain. She has received six days of IV Vancomycin and IV Zosyn. See antibiotic recommendations as below. Qualifiers: Site of cellulitis: extremity Site of cellulitis of extremity: lower extremity Laterality: left Qualified Code(s): L03.116 - Cellulitis of left lower limb (4) Effusion of ankle joint, left Status: Acute Assessment and plan: CT of the left LE showed moderate tibiotalar and subtalar joint effusion. Podiatry consulted. Status post left ankle arthrocentesis by Dr. Gutierrez. Procedure report reviewed. Approximately 3ml yellow/brown fluid aspirated and sent for cell count and culture. TNC 8720 with 65% neutrophils and 35% lymphocytes. Culture negative. MRI completed 05/10/17 continued to show small, non-specific joint effusions. (5) Arthralgia Status: Acute Assessment and plan: Location: bilateral knee and left ankle. Etiology unclear. Given the patient's history of and her persistent joint pain, recommend rheumatology to evaluate. Check uric acid level. Observe off antibiotics. Qualifiers: Joint pain location: knee Laterality: bilateral Qualified Code(s): M25.561 - Pain in right knee; M25.562 - Pain in left knee (6) Anemia Status: Chronic Assessment and plan: Appears chronic, but worse since admission. Hemoglobin down to 7.4 this morning. FOBT positive. GI consulted. Plan to take the patient for EGD and colonoscopy later today. Management per the primary and GI teams. Qualifiers: Anemia type: iron deficiency Iron deficiency anemia type: unspecified iron deficiency Qualified Code(s): D50.9 - Iron deficiency anemia, unspecified (7) Ulcerative colitis Status: Chronic Assessment and plan: Follows with Dr. Landers and [facility]. Currently on Imuran daily and Cimzia every 4 weeks. Management per the GI team. Qualifiers: Ulcerative colitis location: unspecified ulcerative colitis location Digestive disease complication type: without complication Qualified Code(s): K51.90 - Ulcerative colitis, unspecified, without complications (8) Ankylosing spondylitis Status: Chronic Assessment and plan: Follow with [facility] and Dr. Gar. Currently on Cimzia every 4 weeks. Qualifiers: Ankylosing spondylitis location: unspecified site of spine Qualified Code(s ): M45.9 - Ankylosing spondylitis of unspecified sites in spine (9) Factor 5 Leiden mutation, heterozygous Status: Chronic Infectious Disease HPI - Data of Consult Patient: new to practice Consult date: 05/11/17 Requesting Physician: Jeffy Cordova MD Primary Care Provider: Lg Pinedo, - Consult Narrative Reason for consult: Persistent leukocytosis History of present illness: Ms. Duran is a 41 year old female with a past medical history of fibromyalgia, factor V Leiden, GERD, migraines, depression, ulcerative colitis currently on a Imuran, and ankylosing spondylitis currently on Cimzia. The patient was meant to the hospital May 06 for cellulitis of the left ankle and foot. We are consulted May 11 for further evaluation and treatment recommendations regarding persistent leukocytosis despite broad-spectrum antibiotic treatment. The patient is a 41-year-old female with past medical history as stated above. The patient states that approximately a week prior to presenting to the emergency department she began to notice left ankle pain and redness and swelling. She also reports she has having some bilateral knee pain as well. She presented to the urgent care on April 29 and was diagnosed with cellulitis of the left ankle and foot. She was started on oral course of Bactrim. She followed up with her primary care provider the following Wednesday and was not much better so she was also put on Keflex. She will back to her PCP office 48 hours later and was not a better since she was requested to go to the emergency department. Upon arrival, the patient was afebrile, but she was tachycardic and had a leukocytosis. ESR was 129 CRP was 351. A lower extremity CT showed findings consistent with cellulitis and a moderate tibiotalar and subtalar joint effusion as well as a small knee effusion, but no osteomyelitis. Additionally, the patient underwent a bilateral lower extremity venous Doppler study that was negative for DVT. She was started empirically on IV vancomycin and IV Zosyn and was admitted for further evaluation and treatment. Since admission, the patient has continued to have persistent leukocytosis. Today, her white blood cell count is 20.2 thousand. She has had some transient bandemia, which has resolved. Her CRP is trending downwards down to 116 today. Basic metabolic panel has remained relatively normal and LFTs are within normal limits as well. A peripheral smear was conducted on May 07 that showed neutrophilic leukocytosis consistent with an inflammatory reaction. Blood cultures were obtained on May 07 that are currently no growth to date. Podiatry was consulted as well and performed a left ankle arthrocentesis. Approximately 3 mL of yellow/brown fluid was aspirated and sent for cell count that revealed a T NC of 8270 with 65% segmented neutrophils and 35% leukocytes. The culture Gram stain came back negative. A Lyme antibody test was also done that was negative. A ptosis, the patient underwent MRI of the left foot and ankle that again was negative for osteomyelitis, but did show findings consistent with cellulitis of the ankle and foot and nonspecific joint effusions as well as some tenosynovitis. Currently, the patient remains on IV vancomycin, which is on hold due to having toxicity. Zosyn has been discontinued. We've been asked to evaluate and make further recommendations. During my exam today, the patient endorses a history as stated above. She does report some low-grade fevers, chills, and rigors at home prior to admission. She denies any headache or neck pain. She denies any congestion, earache, or sore throat. She denies any chest pain, shortness of breath, or cough. She denies any vomiting or abdominal pain, but does report chronically loose stools and some nausea with poor appetite. She continues to complain of bilateral knee pain and left foot and ankle pain makes it difficult for her to walk. She denies any back or other joint pain. She denies any oral thrush or skin lesions. She states that the redness to the left ankle has subsided, but the swelling and pain to her left foot and ankle remains. She does report a superficial injury to the medial aspect of the left foot about 3 weeks prior to admission after she stepped on a stick. She states that the wound scabbed over and she never had any redness or drainage or tenderness associated with that wound. She denies any tick bites or mosquito bites. She denies any recent travel outside the [facility]. She lives at home with her and 3 children. She does not smoke, use alcohol, or use illicit drugs. CC: Jeffy Cordova MD Past Med Surg Social Fam HX - Past Medical History Medical history: fibromyalgia, GERD, migraine, other Psychiatric history: depression - Past Surgical History Surgical History: - Social History Smoking Status: Never smoker Smokeless Tobacco Status: No Alcohol use: none Drug use: none - Family History Father Living Status: Still Living Hx Family Cardiac Disorders: Yes Hx Family Endocrine Disorder: Yes Infectious Disease-CN:Meds Certolizumab Pegol [Cimzia] 400 mg SQ Q4W 04/29/17 [History] Gabapentin [Neurontin] 300 mg PO BID 04/29/17 [History] Naproxen [Naprosyn] 500 mg PO BID 04/29/17 [History] Oxycodone HCl/Acetaminophen [Percocet 10-325 mg Tablet] 1 each PO QID PRN [History] Sulfamethoxazole/Trimeth DS [Bactrim DS] 1 each PO BID #20 tablet 04/29/17 [Rx] Tizanidine HCl 8 mg PO HS 04/29/17 [History] Amitriptyline [Elavil] 25 mg PO HS 05/06/17 [History] Aspirin Enteric Coated [Aspirin EC] 81 mg PO DAILY 05/06/17 [History] Azathioprine [Imuran] 200 mg PO DAILY 05/06/17 [History] Dicyclomine [Bentyl] 10 mg PO QID 05/06/17 [History] Esomeprazole Magnesium [Nexium] 20 mg PO DAILY 05/06/17 [History] Ferrous Sulfate 325 mg PO DAILY 05/06/17 [History] Rizatriptan Benzoate [Maxalt] 10 mg PO DAILY PRN 05/06/17 [History] Venlafaxine HCl [Venlafaxine HCl ER] 150 mg PO DAILY 05/06/17 [History] cephALEXin [Keflex] 500 mg PO TID 05/06/17 [History] Allergies No Known Allergies Allergy (Verified 07/22/15 11:27) Exam - Constitutional Vitals: Temp Pulse Resp BP Pulse Ox 98.7 F 87 18 109/74 100 05/11/17 11:08 05/11/17 11:08 05/11/17 11:08 05/11/17 11:08 05/11/17 11:08 Infectious Disease CN: Results - Labs CBC & Chem 7: 05/12/17 05:10 05/12/17 05:10 Cultures: Cultures 05/07/17 18:00 Anaerobic Culture - Final Left Ankle No anaerobes were recovered. 05/07/17 18:00 Wound Culture - Final Left Ankle No growth. 05/07/17 18:00 Gram Stain - Final Left Ankle Serology: Serology 05/08/17 05/08/17 05/07/17 Range/Units 08:40 08:15 18:00 Fluid Crystals None Seen (None Seen) Synovial Source Synovial Color (Straw) Synovial Appearance (Clear-Hazy) Synovial Volume mL Synovial RBC (0.000 - 0.002) M/mcl Synovial Tot Nuc Cell (0-200) TNC/mcL Synovial Band Neuts Synovial Basophils Synovial Eosinophils Synovial Seg Neuts % % Synovial Lymphocytes % % Synovial Monocytes % Synovial Other Cells % Synovial Glucose (No Ref Range) mg/dL Synovial Total Protein (No Ref Range) g/dL Stool Occult Blood Positive A (Negative) Lyme Total Antibody negative (Negative) 05/07/17 Range/Units 18:00 Fluid Crystals (None Seen) Synovial Source LEFT ANKLE Synovial Color Straw (Straw) Synovial Appearance Clear (Clear-Hazy) Synovial Volume 1.0 mL Synovial RBC 0.011 H (0.000 - 0.002) M/mcl Synovial Tot Nuc Cell 8270 H (0-200) TNC/mcL Synovial Band Neuts Test Not Performed Synovial Basophils Test Not Performed Synovial Eosinophils Test Not Performed Synovial Seg Neuts % 65.0 % Synovial Lymphocytes % 35.0 % Synovial Monocytes % Test Not Performed Synovial Other Cells % Test Not Performed Synovial Glucose 74 (No Ref Range) mg/dL Synovial Total Protein 3.5 (No Ref Range) g/dL Stool Occult Blood (Negative) Lyme Total Antibody (Negative) Consult Discharge Plan - Plan Referrals: Lg Pinedo, DO [Primary Care Provider] - - Attending Attestation I examined this patient and my medical decision-making was reviewed with the SENIOR PROJECT ENGINEER/PA/Advanced Practice Nurse/Resident Physician. I agree with the documented findings, disposition and treatment plan as described except to the extent set forth below. This is an addendum to original report dictated by Mikala Aguayo CNP. Please refer to Vianey note for full detail. Patient is a 41-year-old woman with past medical history mentioned below including ulcerative colitis, ankylosing spondylitis on Imuran who has failed Remicade in the past was admitted initially for left ankle pain and redness and swelling. Patient was also noted to have elevated inflammatory marker with a ESR of 129 a CRP of 351. CT of the lower extremity revealed cellulitis and moderate tibiotalar and subtalar joint effusion. Patient had arthrocentesis done which revealed a WBC of around 6000. Patient was started on broad-spectrum antibiotics were asked to evaluate the patient and make further recommendations. Today patient appears to be clinically doing well, just came back from colonoscopy. Ankle does not appear to be swollen there is no more erythema there is no more drainage. All cultures have been negative so far. Based on the clinical picture and history of the patient concern for inflammatory joint issue over infectious joint disease. Currently patient is afebrile and does not appear toxic. I believe the leukocytosis is due to the chronic inflammation of the colon. Colonoscopy revealed moderate ulcerative colitis. I think its reasonable to stop all antibiotics and observe. Check uric acid level. Ask rheumatology to evaluate. Repeat blood cultures 2 if temperature over 100.4 Fahrenheit.
[2017-05-11] MEDS ORDERED: Aminoglycoside Consult 1 EACH MC ONE (12:03)
--- NOTE | 2017-05-11 13:03 | Anesthesia Evaluation PreOp ---
Date of Encounter: 05/11/17 Time of Encounter: 13:00 - Past History Planned Operation: EGD/colonoscopy (GI bleed) Cardiac History: Other (Factor V Leiden deficiency (takes daily aspirin)) Pulmonary History: Denies Any Significant HX PESTICIDE APPLICATOR History: Other (ankylosing spondylitis) Other Medical History: Bleeding (GI bleed - also had a GI bleed ~ 2 years ago), GERD, Other (Crohn's disease) Anesthesia History: No Prior Anesthetic Complications, Past Anesthesia ( colonoscopy/egd, C-S x 2, tubal ligation) Alcohol Use: none Drug use: none Medications and Allergies Certolizumab Pegol [Cimzia] 400 mg SQ Q4W 04/29/17 [History] Gabapentin [Neurontin] 300 mg PO BID 04/29/17 [History] Naproxen [Naprosyn] 500 mg PO BID 04/29/17 [History] Oxycodone HCl/Acetaminophen [Percocet 10-325 mg Tablet] 1 each PO QID PRN [History] Sulfamethoxazole/Trimeth DS [Bactrim DS] 1 each PO BID #20 tablet 04/29/17 [Rx] Tizanidine HCl 8 mg PO HS 04/29/17 [History] Amitriptyline [Elavil] 25 mg PO HS 05/06/17 [History] Aspirin Enteric Coated [Aspirin EC] 81 mg PO DAILY 05/06/17 [History] Azathioprine [Imuran] 200 mg PO DAILY 05/06/17 [History] Dicyclomine [Bentyl] 10 mg PO QID 05/06/17 [History] Esomeprazole Magnesium [Nexium] 20 mg PO DAILY 05/06/17 [History] Ferrous Sulfate 325 mg PO DAILY 05/06/17 [History] Rizatriptan Benzoate [Maxalt] 10 mg PO DAILY PRN 05/06/17 [History] Venlafaxine HCl [Venlafaxine HCl ER] 150 mg PO DAILY 05/06/17 [History] cephALEXin [Keflex] 500 mg PO TID 05/06/17 [History] Allergies No Known Allergies Allergy (Verified 07/22/15 11:27) - Meds/Allergy Pre-op Review Medications Reviewed: Yes Allergies Reviewed: Yes Beta Blockers on Current Med List: No Anesthesia Results - Labs 05/11/17 04:34 05/11/17 04:34 - Imaging EKG: report reviewed, image reviewed (SR; low voltage in precordial leads) Additional studies: TTE: LVEF 65% no sign valvular disease Anesthesia Exam Last Vital Signs Temp 97.4 F L 05/11/17 12:53 Pulse 85 05/11/17 12:53 Resp 85 05/11/17 12:53 BP 146/96 05/11/17 12:53 Pulse Ox 100 05/11/17 12:53 Weight: 109 kg NPO (# of Hours): >> 8 hrs - HEENT Pupil (Motor): Pupils equal, EOMI Mallampati: III Teeth: Normal Oral Opening: Greater than 3 - PESTICIDE APPLICATOR LOC: Oriented PESTICIDE APPLICATOR Motor: Normal RUE, Normal LUE, Normal RLE, Normal LLE, Normal Face - Cardiac Rhythm: Regular Murmur: None - Pulmonary Breath Sounds: bilateral Clear Respiratory Effort: Symmetrical Anesthesia Assess/Plan ASA Score: 3 (Crohn's disease, Factor 5 Leiden, GI bleed, GERD, BMI 34, ankylosing spondylitis) Modified [place] Scale for Level of Consciousness: Cooperative, oriented, and tranquil Anesthetic Plan: MAC Monitoring Plan: Standard Monitors Recovery Plan: PACU
[2017-05-11] MEDS ORDERED: Lidocaine -MPF 2% 5 ML VIAL INFILT ONE (13:36)
[2017-05-11] MEDS ORDERED: *HR* Propofol 500 MG/50 ML BOTTLE IVC ONE (13:36)
[2017-05-11] MEDS ORDERED: 0.9 % Sodium Chloride 250 ML IVC SCH (14:00)
--- NOTE | 2017-05-11 15:56 | Podiatry Progress Note ---
Date of Encounter: 05/11/17 Time of Encounter: 15:45 - Assessment and Plan (1) Cellulitis Current Visit: Yes Status: Acute Resolved to left ankle. Qualifiers: Site of cellulitis: extremity Site of cellulitis of extremity: lower extremity Laterality: left Qualified Code(s): L03.116 - Cellulitis of left lower limb (2) Effusion of ankle joint, left Current Visit: Yes Status: Acute (3) Pain in left ankle and joints of left foot Current Visit: Yes Status: Acute s/p left ankle aspiration by Dr. Gutierrez on 05/07/17. No significant elevation that would suggest a septic joint. Left ankle wound cultures negative. Lyme Disease Total antibody: negative Blood cultures: NGTD WBC: 20.2, a febrile MRI of the left ankle and foot reviewed by Dr. Gutierrez, no evidence of osteomyelitis, small joint effusions and tenosynovitis. Ankle swelling does not appear to be infectious. Patient does have a medical history significant for ankylosing spondylitis and is being managed by Dr. Coe. Cellulitis has resolved to the left ankle, recommend compression jax wraps for the swelling. Will continue to monitor patient closely. Qualifiers: Chronicity: acute Qualified Code(s): M25.572 - Pain in left ankle and joints of left foot Subjective Interval history: Patient is sitting up in bed. Patient states her knees and ankles are aching and pain is rated at an 8 out of 10. She denies any fever, chills, n/v overnight. Patient is s/p a left ankle aspiration by Dr. Gutierrez on 05/07/17. WBC continues to remain elevated at 20.2. Infectious Disease was consulted. Patient just returned from an EGD and a colonoscopy. Patient stats she does see Dr. Coe for her ankylosing spondylitis. Patient states Dr. Coe is suppose to come see her in the hospital. Objective - Vital Signs Vital Signs: Vital Signs Temp Pulse Resp BP Pulse Ox 05/11/17 14:54 98.6 F 80 18 114/79 97 05/11/17 12:53 97.4 F L 85 85 146/96 100 05/11/17 11:08 98.7 F 87 18 109/74 100 05/11/17 07:04 99.3 F 86 18 125/84 95 05/11/17 03:42 99.1 F 103 18 110/77 99 05/11/17 00:54 98.9 F 80 17 112/73 99 05/10/17 21:11 98.3 F 91 17 128/86 100 05/10/17 15:54 97.9 F 98 14 131/81 100 Intake and Output 05/10/17 05/11/17 05/11/17 23:59 07:59 15:59 Intake Total 1250 / 1250 100 / 100 1100 / 1100 Output Total 200 / 200 Balance 1250 / 1250 -100 / -100 1100 / 1100 Intake: IV Fluids 1250 / 1250 100 / 100 1100 / 1100 0.9 % Sodium Chloride 1, 1000 / 1000 1000 / 1000 000 ML @ 100 mls/hr IVC . Q10H [facility] Rx#:[id number] Zosyn 3.375 GM In 100 / 100 100 / 100 Dextrose 5% (Minibag+) 100 ML 100 ML @ 25 mls/hr IVPB Q8H [facility] Rx#: [id number] Vancocin 1,000 MG In 250 / 250 Dextrose 5% 250 ML @ 167 mls/hr IVPB Q12H [facility] Rx#: [id number] Output: Urine 200 / 200 Other: # Voids 1 1 Weight 108.5 kg Patient Weight 05/11/17 23:59 Weight 108.5 kg - Exam Exam: General appearance: alert awake oriented X 3. Calm and pleasant, no acute distress.. Vascular: Pedal pulses +1/4 DP/PT , No evidence of cyanosis, pallor or rubor, Edema graded at 2+/4 pitting, left foot, 1+/4 right foot, Skin temperature warm , No varicosities or varicose veins noted, no calf pain with manual compression , capillary refill time is immediate to digits.. Neurologic: Intact sensation with light touch. Integument: Cellulitis has resolved to the right medial ankle, light brown discoloration to the medial left ankle with 2+ pitting edema, dried scab o the medial aspect of the 1st metatarsal head left foot, no evidence of bacterial infection. Crack to the left heel with dried blood observed, no active bleeding. - Lab Result Diagrams: 05/11/17 04:34 05/11/17 04:34 Labs: Abnormal lab results WBC 20.2 K/mcL (4.3-11.1) H 05/11/17 04:34 RBC 2.90 M/mcL (3.82-4.97) L 05/11/17 04:34 Hgb 7.4 g/dL (11.5-15.4) L 05/11/17 04:34 Hct 24.9 % (35.3-44.9) L 05/11/17 04:34 MCH 25.5 pg (28.0-33.3) L 05/11/17 04:34 MCHC 29.7 g/dL (31.6-35.5) L 05/11/17 04:34 RDW 15.3 % (11.5-14.5) H 05/11/17 04:34 Plt Count 412 K/mcL (140-400) H 05/11/17 04:34 MPV 8.2 fL (9.4-12.4) L 05/11/17 04:34 Immature Gran % 6.7 % (0-4) H 05/11/17 04:34 Metamyelocytes % 5.5 % (0) H 05/09/17 05:10 Myelocytes % 2.0 % (0) H 05/08/17 04:09 Neutrophils # 13.3 K/mcL (1.6-8.9) H 05/11/17 04:34 Monocytes # 1.9 K/mcL (0.0-1.3) H 05/11/17 04:34 Nucleated RBCs/100 WBC 0.1 /100 WBC (0) H 05/11/17 04:34 Reactive Lymphocytes Present (Not Present) A 05/09/17 05:10 Platelet Estimate Slight increase (Normal) H 05/11/17 04:34 Polychromasia 1+ (Not Present) A 05/09/17 05:10 Hypochromasia Present (Not Present) A 05/07/17 00:52 Anisocytosis 1+ (Not Present) A 05/10/17 03:46 ESR 129 mm/hr (0-15) H 05/06/17 19:40 BUN 4 mg/dL (7-20) L 05/11/17 04:34 BUN/Creatinine Ratio 5 (6-26) L 05/11/17 04:34 Iron 19 mcg/dL (50-170) L 05/09/17 05:10 % Saturation 10 % (15-50) L 05/09/17 05:10 Transferrin 134 mg/dL (180-382) L 05/09/17 05:10 C-Reactive Protein 116 mg/L (Less than 5) H 05/11/17 04:34 Albumin 2.1 g/dL (3.5-5.0) L 05/11/17 04:34 Globulin 4.9 g/dL (2.4-3.5) H 05/11/17 04:34 Albumin/Globulin Ratio 0.4 (1.1-2.2) L 05/11/17 04:34 Synovial RBC 0.011 M/mcl (0.000-0.002) H 05/07/17 18:00 Synovial Tot Nuc Cell 8270 TNC/mcL (0-200) H 05/07/17 18:00 Stool Occult Blood Positive (Negative) A 05/08/17 08:40 Vancomycin Trough 20.4 mcg/mL (10-20) H* 05/10/17 08:07 Microbiology, Last 48 Hours 05/07/17 18:00 Anaerobic Culture - Final Left Ankle No anaerobes were recovered. 05/07/17 18:00 Wound Culture - Final Left Ankle No growth. Consult Discharge Plan - Plan Referrals: Lg Pinedo DO [Primary Care Provider] -
[2017-05-11] MEDS: SODIUM CHLORIDE 0.9% IVPB SCH (18:09)
[2017-05-11] MEDS: IRON DEXTRAN COMPLEX IVPB SCH (18:09)
[2017-05-11] MEDS ORDERED: *HR* Morphine 2 MG/ML SYRINGE IVP PRN (18:29)
[2017-05-11] MEDS: Ondansetron 4 MG/2 ML VIAL IVP PRN (23:09)
[2017-05-12] MEDS: Ondansetron 4 MG/2 ML VIAL IVP PRN ×2 (02:35→20:35)
[2017-05-12] MEDS: *HR* HYDROcodone/Acet 5/325 mg TABLET PO PRN ×2 (02:36→07:34)
[2017-05-12] MEDS: Pantoprazole 40 MG VIAL IVP SCH ×2 (05:14→18:18)
[2017-05-12 05:32] LABS: Basophils # 0.1 K/mcL (0.0-0.2); Basophils % 0.2 %; Eosinophils # 0.2 K/mcL (0.0-0.6); Eosinophils % 0.7 %; Hematocrit 26.5 % (35.3-44.9); Immature Granulocytes % 3.8 % (0-4); Lymphocytes # 2.6 K/mcL (0.6-4.6); Mean Corpuscular HGB Conc 30.2 g/dL (31.6-35.5); Monocytes # 2.2 K/mcL (0.0-1.3); Monocytes % 10.1 %; Neutrophils # 15.6 K/mcL (1.6-8.9); Platelet Count 392 K/mcL (140-400); Red Blood Count 3.08 M/mcL (3.82-4.97); Red Cell Distribution Width 15.5 % (11.5-14.5); Segmented Neutrophils % 73.2 %
[2017-05-12 05:47] LABS: Alanine Aminotransferase 12 Units/L (0-55); Albumin 2.1 g/dL (3.5-5.0); Albumin/Globulin Ratio 0.4 (1.1-2.2); Alkaline Phosphatase 107 Units/L (38-126); Aspartate Amino Transferase 12 Units/L (5-34); BUN/Creatinine Ratio 5 (6-26); Bilirubin,Total 0.4 mg/dL (0.2-1.2); Carbon Dioxide 23 mEq/L (19-29); Chloride 108 mEq/L (98-109); Globulin 4.8 g/dL (2.4-3.5); Glucose 96 mg/dL (70-99); Osmolality,Calculated 287 (280-300); Potassium 3.5 mEq/L (3.5-4.5); Sodium 140 mEq/L (136-145); Total Protein 6.9 g/dL (6.0-8.3); eGFR For African Americans > 60 (> 60); eGFR For Non-African Americans > 60 (> 60)
[2017-05-12 05:51] LABS: Blood Urea Nitrogen 4 mg/dL (7-20)
[2017-05-12 06:22] LABS: C-Reactive Protein 119 mg/L (Less than 5)
[2017-05-12] MEDS: Aspirin Enteric Coated 81 MG Tablet PO SCH (12:58)
[2017-05-12] MEDS: Venlafaxine XR (24 HR) 150 MG CAP.ER.24H PO SCH (12:58)
[2017-05-12] MEDS: Gabapentin 300 MG CAPSULE PO SCH ×2 (12:59→20:35)
--- NOTE | 2017-05-12 14:05 | Infectious Disease Progress No ---
Date of Encounter: 05/12/17 Time of Encounter: 14:03 - Assessment and Plan (1) Sepsis Current Visit: Yes Status: Acute The patient had two SIRS criteria on admission (tachycardia, leukocytosis). Lactic acid was normal. IV fluid resuscitation managed per the primary team. Likely secondary to cellulitis. Improved. The patient continues to have tachycardia, but appears less frequent. WBC remains elevated. Blood cultures drawn 05/07/17 are NGTD. The patient has remained afebrile off antibiotics. Qualifiers: Sepsis type: sepsis due to unspecified organism Qualified Code(s): A41.9 - Sepsis, unspecified organism (2) Leukocytosis Current Visit: Yes Status: Acute WBC 23.9 on admission. Continues to be elevated around 20 despite 6 days of broad-spectrum IV antibiotics. Physical exam and ROS unyielding. Etiology unclear, but consider non-infectious etiologies of the patient's persistent leukocytosis. Antibiotics discontinued 05/12/17. The patient has remained afebrile. If the patient spikes a fever of > 100.4, repeat blood cultures x 2 sets and re- start antibiotics. Qualifiers: Leukocytosis type: unspecified Qualified Code(s): D72.829 - Elevated white blood cell count, unspecified (3) Cellulitis Current Visit: Yes Status: Acute Causative organism unclear. Location: Left foot and ankle. CT scan of the left LE showed findings consistent with cellulitis, moderate tibiotalar and subtalar joint effusions, and a small left knee effusion. No OM noted. ESR 129 and CRP 351. MRI of the left foot and ankle 05/10/17 showed no osteomyelitis, but there were findings consistent with cellulitis, non-specific joint effusions, and tenosynovitis. Clinically, the cellulitis appears to have resolved, but the patient continues to complain of left ankle and foot pain. She received six days of IV Vancomycin and IV Zosyn. Continue to observe off antibiotics. Qualifiers: Site of cellulitis: extremity Site of cellulitis of extremity: lower extremity Laterality: left Qualified Code(s): L03.116 - Cellulitis of left lower limb (4) Effusion of ankle joint, left Current Visit: Yes Status: Acute CT of the left LE showed moderate tibiotalar and subtalar joint effusion. Podiatry consulted. Status post left ankle arthrocentesis by Dr. Gutierrez. Procedure report reviewed. Approximately 3ml yellow/brown fluid aspirated and sent for cell count and culture. TNC 8720 with 65% neutrophils and 35% lymphocytes. Culture negative. MRI completed 05/10/17 continued to show small, non-specific joint effusions. (5) Arthralgia Current Visit: Yes Status: Acute Location: bilateral knee and left ankle. Etiology unclear. Given the patient's history of and her persistent joint pain, get rheumatology to evaluate. Uric acid level normal. Observe off antibiotics. Await rheumatology recommendations. Qualifiers: Joint pain location: knee Laterality: bilateral Qualified Code(s): M25.561 - Pain in right knee; M25.562 - Pain in left knee (6) Anemia Current Visit: Yes Status: Chronic Appears chronic, but worse since admission. Received 1 unit PRBCs. Improved to 8 this morning. FOBT positive. Status post EGD and C-scope 05/11/17. Worsening UC noted and non-bleeding gastric ulcers noted. Management per the primary and GI teams. Qualifiers: Anemia type: iron deficiency Iron deficiency anemia type: unspecified iron deficiency Qualified Code(s): D50.9 - Iron deficiency anemia, unspecified (7) Ulcerative colitis Current Visit: Yes Status: Chronic Follows with Dr. Landers and [facility]. Currently on Imuran daily and Cimzia every 4 weeks. Management per the GI team. Qualifiers: Ulcerative colitis location: unspecified ulcerative colitis location Digestive disease complication type: without complication Qualified Code(s): K51.90 - Ulcerative colitis, unspecified, without complications (8) Ankylosing spondylitis Current Visit: Yes Status: Chronic Follow with [facility] and Dr. Gar. Currently on Cimzia every [address] Gar to evaluate the patient. Qualifiers: Ankylosing spondylitis location: unspecified site of spine Qualified Code(s ): M45.9 - Ankylosing spondylitis of unspecified sites in spine (9) Factor 5 Leiden mutation, heterozygous Current Visit: Yes Status: Chronic - Subjective Interval history: Patient seen and examined with family at bedside. No acute events noted overnight. Patient states she feels a little better today. Denies fevers, chills , or rigors. Denies chest pain, shortness of breath, or cough. Denies nausea, vomiting, or diarrhea. Denies abdominal pain and states her appetite is okay. Denies urinary complaints. Denies oral thrush or skin lesions. Continues to complain of pain in the left foot and bilateral knees. Also complains of discomfort and swelling to the right foot this morning. Infect Dis PN-Objective Data - Labs CBC & Chem 7: 05/12/17 05:10 05/12/17 05:10 Labs: Laboratory Results - last 24 hr 05/11/17 05/12/17 05/12/17 16:01 05:10 05:10 WBC 21.3 H RBC 3.08 L Hgb 8.0 L Hct 26.5 L MCV 86.0 MCH 26.0 L MCHC 30.2 L RDW 15.5 H Plt Count 392 MPV 8.0 L Immature Gran % 3.8 Seg Neutrophils % 73.2 Lymphocytes % 12.0 Monocytes % 10.1 Eosinophils % 0.7 Basophils % 0.2 Neutrophils # 15.6 H Lymphocytes # 2.6 Monocytes # 2.2 H Eosinophils # 0.2 Basophils # 0.1 Sodium 140 Potassium 3.5 Chloride 108 Carbon Dioxide 23 BUN 4 L Creatinine 0.81 Est GFR ( Amer) > 60 Est GFR (Non-Af Amer) > 60 BUN/Creatinine Ratio 5 L Glucose 96 Calculated Osmolality 287 Uric Acid 3.0 Calcium 9.0 Total Bilirubin 0.4 AST 12 ALT 12 Alkaline Phosphatase 107 C-Reactive Protein 119 H Serum Total Protein 6.9 Albumin 2.1 L Globulin 4.8 H Albumin/Globulin Ratio 0.4 L Blood Type A POSITIVE Antibody Screen NEGATIVE Crossmatch See Detail Cultures: Cultures 05/07/17 18:00 Anaerobic Culture - Final Left Ankle No anaerobes were recovered. 05/07/17 18:00 Wound Culture - Final Left Ankle No growth. 05/07/17 18:00 Gram Stain - Final Left Ankle Serology 05/08/17 05/08/17 05/07/17 Range/Units 08:40 08:15 18:00 Fluid Crystals None Seen (None Seen) Synovial Source Synovial Color (Straw) Synovial Appearance (Clear-Hazy) Synovial Volume mL Synovial RBC (0.000 - 0.002) M/mcl Synovial Tot Nuc Cell (0-200) TNC/mcL Synovial Band Neuts Synovial Basophils Synovial Eosinophils Synovial Seg Neuts % % Synovial Lymphocytes % % Synovial Monocytes % Synovial Other Cells % Synovial Glucose (No Ref Range) mg/dL Synovial Total Protein (No Ref Range) g/dL Stool Occult Blood Positive A (Negative) Lyme Total Antibody negative (Negative) 05/07/17 Range/Units 18:00 Fluid Crystals (None Seen) Synovial Source LEFT ANKLE Synovial Color Straw (Straw) Synovial Appearance Clear (Clear-Hazy) Synovial Volume 1.0 mL Synovial RBC 0.011 H (0.000 - 0.002) M/mcl Synovial Tot Nuc Cell 8270 H (0-200) TNC/mcL Synovial Band Neuts Test Not Performed Synovial Basophils Test Not Performed Synovial Eosinophils Test Not Performed Synovial Seg Neuts % 65.0 % Synovial Lymphocytes % 35.0 % Synovial Monocytes % Test Not Performed Synovial Other Cells % Test Not Performed Synovial Glucose 74 (No Ref Range) mg/dL Synovial Total Protein 3.5 (No Ref Range) g/dL Stool Occult Blood (Negative) Lyme Total Antibody (Negative) Exam - Constitutional Vitals: Temp Pulse Resp BP Pulse Ox 98.5 F 102 16 138/76 96 05/12/17 09:53 05/12/17 09:53 05/12/17 09:53 05/12/17 09:53 05/12/17 09:53 General appearance: cooperative, no acute distress, obese - Head Head exam: Present: atraumatic, normal inspection, normocephalic - Eye Eye exam: Present: EOMI, normal appearance, PERRL Pupils: Present: normal accommodation - ENT ENT exam: Present: mucous membranes moist - Neck Neck exam: Present: normal inspection - Respiratory Respiratory exam: Present: CTAB. Absent: rales, respiratory distress, rhonchi, wheezes - Cardiovascular Cardiovascular exam: Present: RRR, +S1, +S2 - GI/Abdominal GI/Abdominal exam: Present: normal bowel sounds, soft. Absent: distended, tenderness - Extremities Exam Extremities exam: Present: joint swelling (trace, bilateral knees), pedal edema (1+ left foot/ankle, trace right foot), tenderness (bilateral knees) Additional comments: Bilateral feet edema noted as above, but non-tender. No erythema or warmth noted. - Neurological Exam Neurological exam: Present: alert, oriented X3, no focal deficits - Psychiatric Psychiatric exam: Present: normal affect, normal mood - Skin Skin exam: Present: dry, intact, normal color, warm Consult Discharge Plan - Plan Referrals: McCleese,Lg G, DO [Primary Care Provider] - - Attending Attestation I examined this patient and my medical decision-making was reviewed with the NEEDLE PUNCH OPERATOR/PA/Advanced Practice Nurse/Resident Physician. I agree with the documented findings, disposition and treatment plan as described except to the extent set forth below.
[2017-05-12 16:03] VITALS: BP 118/69
--- NOTE | 2017-05-12 16:08 | Rheumatology Consult Note ---
<Rhoda Ignacio - Last Filed: 05/12/17 16:08> Date of Encounter: 05/12/17 Time of Encounter: 15:00 Rheumatology Assess and Plan (1) Inflammatory arthritis Status: Acute - Affecting bilateral knees and ankles. - Left ankle joint aspiration from 05/07 suggests inflammatory arthritis and unlikely septic as gram stain & culture negative. - Case was discussed with Dr. Leiva. Feel it's more likely secondary to ulcerative colitis (given it's worsen per colonoscopy) rather than ankylosing spondylitis (given patient was doing well on Cimzia). - Dr. Leiva had discussed the case with hospitalist Dr. Bardales. Will recommend to give Solu-Medrol 40 mg IV x1 now and switch to PO prednisone taper (40 mg daily x 3 days and then 20 mg daily until be outpatient rheumatology follow-up) - Patient is instructed to avoid NSAIDs and will need to be on PPI given the finding of non-bleeding gastric ulcer on EGD - Will follow up outpatiently in rheumatology clinic next week. (2) Ulcerative colitis Status: Chronic - Colonoscopy on 05/11 suggests worsening ulcerative colitis compared to prior colonoscopy. - Likely contributes to patient's current arthalgias and leukocytosis. - Patient will receive one dose of Solu-Medrol 40 mg IV today and will be switched to prednisone taper on discharge. - Patient will need outpatient GI follow-up regarding ulcerative colitis management as recommended by GI. Qualifiers: Ulcerative colitis location: unspecified ulcerative colitis location Digestive disease complication type: without complication Qualified Code(s): K51.90 - Ulcerative colitis, unspecified, without complications (3) Cellulitis Status: Acute - Left ankle cellulitis significantly improved after IV antibiotic. - Infectious diseases on board and recommends off from antibiotic. Qualifiers: Site of cellulitis: extremity Site of cellulitis of extremity: lower extremity Laterality: left Qualified Code(s): L03.116 - Cellulitis of left lower limb (4) Ankylosing spondylitis Status: Chronic - Patient sees Dr. Leiva and was doing well with Cimizia. - Case has been discussed with Dr. Leiva. Feel patient's current arthalgias and leukcytosis is more likely secondary to ulcerative colitis rather than . Qualifiers: Ankylosing spondylitis location: unspecified site of spine Qualified Code(s ): M45.9 - Ankylosing spondylitis of unspecified sites in spine (5) Gastric ulcer Status: Acute - EGD on 05/11 found non-bleeding gastric ulcer. - Patient is instructed to avoid NSAIDs such as naproxen. - Patient will need to be on PPI on discharge. Qualifiers: Gastric ulcer chronicity: unspecified ulcer chronicity Gastric ulcer complication status: without hemorrhage or perforation Qualified Code(s): K25.9 - Gastric ulcer, unspecified as acute or chronic, without hemorrhage or perforation (6) Leukocytosis Status: Acute - Persistent leukocytosis with WBC 21.3 today. - Peripheral smear form 05/07 found neutrophilic leukocytosis with left shift consistent with inflammatory reaction. - More likely secondary to ulcerative colitis. Qualifiers: Leukocytosis type: unspecified Qualified Code(s): D72.829 - Elevated white blood cell count, unspecified Rheumatology HPI Consult date: 05/12/17 Requesting physician: Mikala Aguayo Consult reason: History of , Arthralgias Chief complaint: [place] knee and ankle pain & swelling History of present illness: Ms. Duran is a 41 year old female with PMH of factor V Leiden, ulcerative colitis and ankylosing spondylitis on Cimizia and azathioprine. Patient presented with persistent left ankle pain and erythema despite of being treating with 6 days of Bactrim & 2 days of Keflex. Patient was also noted to have significant leukocytosis(23.9) in ED. Patient was admitted on 05/07/17 for left ankle cellulitis and started on IV vancomycin and Zosyn. Left ankle joint aspiration was done by podiatry on 05/07 and found 8270 TNC (65% neutrophils & 35 % lymphocytes) and negative gram stain & culture. MRI of left ankle and foot on suggests cellulitis, joint effusion and tenosynovitis but no osteomyelitis. Infectious diseases on board and recommends observe off antibiotics given patient's cellulitis has improved. Patient also has positive stool occult test on 05/08. EGD on 05/11 found non-bleeding gastric ulcer and colonoscopy suggests worsening ulcerative colitis compared to prior colonoscopy. GI recommends outpatient GI follow-up. Patient is noted to have persistent leukocytosis (21.3 today) and rheumatology is consulted for patient's arthalgias and history of ankylosing spondylitis. Patient was seen and examined this afternoon. Patient reports having bilateral knee and ankle pain and swelling starting yesterday. The pain is aggravated on ambulation or putting weight on. Morphine does not help much for the pain. Patient reports this is new to her as she does not have symptoms when she has active ankylosing spondylitis. Patient states the left ankle swelling is about the same as on admission despite that the cellulitis has significantly improved. Patient is able to walk. Patient does have some back pain but states it's due to lying on bed for too long. Patient denies numbness/tingling, focal weakness, vision change, eye redness/pain, fever, chills, shortness of breath, chest pain, abdominal pain, skin rash/itchiness, oral ulcer/sore, easily bleeding/bruise, nausea, vomiting, diarrhea, myalgia or other joint pain. Patient reports being compliant to her Cimizia and azathioprine. Patient states she likes to go home today if she can. Past Med Surg Social Fam HX - Past Medical History Medical history: fibromyalgia, GERD, migraine, other Psychiatric history: depression - Past Surgical History Surgical History: - Social History Smoking Status: Never smoker Smokeless Tobacco Status: No Alcohol use: none Drug use: none - Family History Father Living Status: Still Living Hx Family Cardiac Disorders: Yes Hx Family Endocrine Disorder: Yes Medications and Allergies Certolizumab Pegol [Cimzia] 400 mg SQ Q4W 04/29/17 [History] Gabapentin [Neurontin] 300 mg PO BID 04/29/17 [History] Naproxen [Naprosyn] 500 mg PO BID 04/29/17 [History] Oxycodone HCl/Acetaminophen [Percocet 10-325 mg Tablet] 1 each PO QID PRN [History] Sulfamethoxazole/Trimeth DS [Bactrim Ds] 1 each PO BID #20 tablet 04/29/17 [Rx] Tizanidine HCl 8 mg PO HS 04/29/17 [History] Amitriptyline [Elavil] 25 mg PO HS 05/06/17 [History] Azathioprine [Imuran] 200 mg PO DAILY 05/06/17 [History] Dicyclomine [Bentyl] 10 mg PO QID 05/06/17 [History] Esomeprazole Magnesium [Nexium] 20 mg PO DAILY 05/06/17 [History] Ferrous Sulfate 325 mg PO DAILY 05/06/17 [History] Rizatriptan Benzoate [Maxalt] 10 mg PO DAILY PRN 05/06/17 [History] cephALEXin [Keflex] 500 mg PO TID 05/06/17 [History] Azathioprine [Imuran] 200 mg PO DAILY tablet 05/12/17 [Rx] Ciprofloxacin [Cipro] 500 mg PO BID #16 tablet 05/12/17 [Rx] HYDROcodone/Acet 5/325 mg [[place] 5-325 mg] 1 tab PO Q4HR PRN #20 tablet [Rx] predniSONE [PredniSONE] 20 mg PO DAILY #33 tablet 05/12/17 [Rx] Allergies No Known Allergies Allergy (Verified 07/22/15 11:27) All Systems Review: A 10-system review of systems was performed and is negative for pertinent findings except as documented above in the HPI. Review of Systems: Patient denies numbness/tingling, focal weakness, vision change, eye redness/ pain, fever, chills, shortness of breath, chest pain, abdominal pain, skin rash/ itchiness, easily bleeding/bruise, nausea, vomiting, diarrhea, myalgia or other joint pain. Rheumatology Exam Vital Signs, Last 4 Hours Temp Pulse Resp BP Pulse Ox 05/12/17 16:02 98.2 F 84 16 118/69 95 Exam: General: A&O x3, NAD HEENT: AT/NC, EOMI, PERRL, mucosa moist, no oral ulcer/sore noted, no significant cervical lymphoadenopathy noted. CV: tachycardia, regular rhythm, no significant murmurs noted. Lungs: CTAB, no wheezes, rales or rhonchi. Abd: soft, non-tender, bowel sounds present. Neuro: CN II-XII grossly intact, strength 5/5 symmetrical for bilateral UE & LE , no focal deficit noted. Extremities: Swelling and joint line tenderness of bilateral knees and ankles but full ROM. The left ankle cellulitis had significantly decreased in size per marker drawing. Rheumatology Results 05/12/17 05:10 05/12/17 05:10 All other labs normal. Consult Discharge Plan - Plan Instructions: Cellulitis (DC) Additional Instructions: Follow-up appointments: If there is not an appointment listed below, please call your physician and schedule a follow-up appointment. If you have congestive heart failure and your symptoms return, make an appointment with your physician. Medication List: Carry an up to date list of medications you are taking at all time. We have given you an updated medication list including any new medications that you have been prescribed. Please provide that list to your primary provider Symptoms: If your condition changes or you experience any of the following symptoms, notify your physician immediately: Unusual or worsening pain, fever, persistent nausea and vomiting, bleeding, increase in swelling (especially in your legs), sudden weight gain, extreme dizziness, chest pain, increased drainage or redness from a wound or incision. Go to the emergency department if you experience a problem with breathing. Weights: If you have a history of swelling or shortness of breath, weigh yourself daily and notify your physician if you have a weight gain of two or more pounds in one day or 5 or more pounds in a week. If you experience any of the warning signs for stroke: Sudden numbness or weakness of the face, arm or leg; especially on one side of the body, sudden confusion, trouble speaking or understanding, sudden trouble seeing in one or both eyes, sudden trouble walking, dizziness, loss of balance or coordination, sudden sever headache with no cause; Call 911 or go to the emergency room. Stroke is a medical emergency. Some risk factors for stroke: Age, cigarette smoking, diabetes, excessive alcohol consumption, family history , high blood pressure, overweight, physical inactivity, prior stroke, heart attack, diagnosis of carotid artery stenosis or other artery disease. If you smoke, STOP: Smoking or tobacco use significantly increases your risk of heart and lung disease. Your chance of disease greatly increases if you continue to smoke. For more information, call the [place] tobacco quit line for smoking cessation QUIT-NOW ( ) Referrals: Mikala Gar [Student Nurse] - Lg Pinedo DO [Primary Care Provider] - Eder Landers MD [Partnered Physician] - Prescriptions: HYDROcodone/Acet 5/325 mg [[place] 5-325 mg] 1 tab PO Q4HR PRN #20 tablet PRN Reason: Moderate pain Ciprofloxacin [Cipro] 500 mg PO BID #16 tablet predniSONE [PredniSONE] 20 mg PO DAILY #33 tablet <Ferny Leiva - Last Filed: 05/13/17 06:53> Date of Encounter: 05/13/17 Rheumatology HPI History of present illness: Ms. Duran is a 41 year old female All Systems Review: A 10-system review of systems was performed and is negative for pertinent findings except as documented above in the HPI. Rheumatology Results 05/12/17 05:10 05/12/17 05:10 All other labs normal. - Attending Attestation I examined this patient and my medical decision making was reviewed with the resident physician. I agree with the documented findings, disposition and treatment as described with these exceptions. In summary, this patient has a history of ulcerative colitis, ankylosing spondylitis. On immunosuppression of Cimzia and azathioprine; also on daily NSAID Presents with cellulitis, inflammatory arthritis, worsening ulcerative colitis, leukocytosis. Clinically diagnosed with cellulitis also noted on MR which the report was reviewed; improved with antibiotics. TTE reviewed. Also presented with worsening arthritis with effusions of left ankle and bilateral knees; left ankle effusion inflammatory and cultures negative; additionally blood cultures negative. EGD and colonoscopy revealed nonbleeding ulcerations and worsening UC; reports reviewed. After infection treated, continued to have persistent leukocytosis; smear suggestive of inflammatory cause. She has been covered with antibiotics during hospitalization and hospitalist medicine plans to discharge on antibiotics. Given active arthritis and also ulcerative colitis, will treat with solumedrol now and prednisone till follow-up appointment. Will need to further decide on outpatient therapy given infections and UC worsening despite Cimzia and azathioprine; will need GI followup and rheum followup with myself. I discussed the case with hospitalist medicine and infectious disease. Outpatient appointment scheduled.
--- NOTE | 2017-05-12 18:02 | Discharge Summary ---
Date of Encounter: 05/12/17 Time of Encounter: 18:00 - Discharge Diagnosis (1) Cellulitis Priority: Primary Status: Acute Qualifiers: Site of cellulitis: extremity Site of cellulitis of extremity: lower extremity Laterality: left Qualified Code(s): L03.116 - Cellulitis of left lower limb (2) Pain in left ankle and joints of left foot Priority: Secondary Status: Acute Qualifiers: Chronicity: acute Qualified Code(s): M25.572 - Pain in left ankle and joints of left foot (3) Effusion of ankle joint, left Priority: Secondary Status: Acute (4) Anemia Priority: Secondary Status: Acute Qualifiers: Anemia type: iron deficiency Iron deficiency anemia type: unspecified iron deficiency Qualified Code(s): D50.9 - Iron deficiency anemia, unspecified (5) Localized swelling of both lower legs Priority: Secondary Status: Acute (6) Hypomagnesemia Priority: Secondary Status: Acute (7) Ulcerative colitis Priority: Primary Status: Acute Qualifiers: Ulcerative colitis location: unspecified ulcerative colitis location Digestive disease complication type: unspecified complication Qualified Code(s ): K51.919 - Ulcerative colitis, unspecified with unspecified complications (8) Gastrointestinal bleed Priority: Primary Status: Acute Qualifiers: GI bleed type/associated pathology: duodenal ulcer Qualified Code(s): K26.4 - Chronic or unspecified duodenal ulcer with hemorrhage - Discharge Medications Prescriptions: HYDROcodone/Acet 5/325 mg [[place] 5-325 mg] 1 tab PO Q4HR PRN #20 tablet PRN Reason: Moderate pain Ciprofloxacin [Cipro] 500 mg PO BID #16 tablet predniSONE [PredniSONE] 20 mg PO DAILY #33 tablet Home Medications: Certolizumab Pegol [Cimzia] 400 mg SQ Q4W 04/29/17 [History] Gabapentin [Neurontin] 300 mg PO BID 04/29/17 [History] Naproxen [Naprosyn] 500 mg PO BID 04/29/17 [History] Oxycodone HCl/Acetaminophen [Percocet 10-325 mg Tablet] 1 each PO QID PRN [History] Sulfamethoxazole/Trimeth DS [Bactrim Ds] 1 each PO BID #20 tablet 04/29/17 [Rx] Tizanidine HCl 8 mg PO HS 04/29/17 [History] Amitriptyline [Elavil] 25 mg PO HS 05/06/17 [History] Azathioprine [Imuran] 200 mg PO DAILY 05/06/17 [History] Dicyclomine [Bentyl] 10 mg PO QID 05/06/17 [History] Esomeprazole Magnesium [Nexium] 20 mg PO DAILY 05/06/17 [History] Ferrous Sulfate 325 mg PO DAILY 05/06/17 [History] Rizatriptan Benzoate [Maxalt] 10 mg PO DAILY PRN 05/06/17 [History] cephALEXin [Keflex] 500 mg PO TID 05/06/17 [History] Azathioprine [Imuran] 200 mg PO DAILY tablet 05/12/17 [Rx] Ciprofloxacin [Cipro] 500 mg PO BID #16 tablet 05/12/17 [Rx] HYDROcodone/Acet 5/325 mg [[place] 5-325 mg] 1 tab PO Q4HR PRN #20 tablet [Rx] predniSONE [PredniSONE] 20 mg PO DAILY #33 tablet 05/12/17 [Rx] Allergies/Adverse Reactions: Allergies No Known Allergies Allergy (Verified 07/22/15 11:27) Procedures/tests Complete & Pending: Procedures Performed prior 72 hours Category Date Time Status MR ankle LT wo/w con [MR] Stat MRI 05/10/17 15:58 Completed MR foot LT wo/w con [MR] Stat MRI 05/10/17 15:58 Completed EV echocardiogram Routine Y 05/11/17 Completed Date of admission: 05/07/17 01:07 Primary care physician: Lg Pinedo, Consults: 05/07/17 16:06 Consult to Podiatry [CONS] Routine Consulting Provider: [facility] Reason for Consult: Ankle cellulitis with ankle and knee joint effusion Time Notified: 16:06 Call Completed: Yes 05/09/17 15:06 Consult to Gastroenterology [CONS] Routine Consulting Provider: [facility] Reason for Consult: Iron deficiency anemia Time Notified: 15:07 Call Completed: No 05/11/17 08:46 Consult to Infectious Diseases [CONS] Routine Consulting Provider: [facility] [place] Reason for Consult: Cellulitis left ankle elevated white count despite IV antibiotic treatment Time Notified: 08:48 Call Completed: No 05/12/17 14:01 Consult to Physician [CONS] Routine Consulting Provider: Ferny Leiva Reason for Consult: History of , Arthralgias Time Notified: 14:02 Call Completed: Yes Discharging clinician: Jeffy Cordova Anticipated date of discharge: 05/12/17 - Patient Status Disposition: Home, Self-Care Condition: Fair Overall status at discharge: patient is progressing back to baseline - Discharge Instructions Follow Up With: Lg Pinedo, [Primary Care Provider] - - Diet and Activity Activity: resume usual activities as tolerated Diet: advance to your usual diet Hospital course: Ms. Duran is a 41 year old female who was admitted with the lower extremity cellulitis and was treated with IV vancomycin successfully. However in the meantime it was noted that her hemoglobin is quite low and when iron profile was checked and checked she was noted to be severely deficient in iron. Iron is supplemented Hemoccult test was checked and was positive therefore GI was consulted who did EGD and colonoscopy. Colonoscopy showed exacerbation of her ulcerative colitis at multiple spots and also involvement of her small intestine as she was noted to have duodenal ulcers. She is planned to med remain on the Protonix. Electrolyte imbalance including potassium and dad magnesium were corrected. He started complaining of bilateral ankle and knee joint swelling and pain in her white count is stated in the range of 2000. A suspicion of all stated it may be related to her underlying Crohn's disease versus ankylosing spondylitis. Rheumatology was consulted who confirmed that these findings are related to exacerbation of Crohn after she had colonoscopy a few weeks back. At this time infectious disease rheumatology and podiatry have seen. Her joint space was aspirated and it was a benign fluid. Hematology and infectious disease have recommended to let her go as well as GI. She is tolerating full diet. She will follow with all doctors as outpatient. - Time Spent with Patient Total time spent providing and/or coordinating discharge services: Greater than 30 minutes - Constitutional Vitals: Temp Pulse Resp BP Pulse Ox 98.2 F 84 16 118/69 95 05/12/17 16:02 05/12/17 16:02 05/12/17 16:02 05/12/17 16:02 05/12/17 16:02 - Head Head exam: Present: atraumatic, normocephalic - Eye Eye exam: Present: PERRL, conjuntiva pink, sclera anicteric Pupils: Present: PERRL - Neck Neck exam general surgery: Present: supple, trachea midline. Absent: lymphadenopathy - Respiratory Respiratory exam: Present: CTAB. Absent: accessory muscle use, rales, rhonchi, wheezes - Cardiovascular Cardiovascular exam: Present: RRR, +S1, +S2. Absent: diastolic murmur, gallop, rubs, systolic murmur - GI/Abdominal GI/Abdominal exam: Present: normal bowel sounds, soft, no peritoneal signs. Absent: distended, tenderness - Extremities Exam Extremities exam: Present: warm, radial pulses palpable and symetrical. Absent : calf tenderness, cyanotic, pedal edema Additional comments: Bilateral knee and ankle swelling has been reduced range of motion has improved no significant tenderness anymore rash in lower extremity also has subsided - Neurological Exam Neurological exam: Present: CN II-XII intact, oriented X3, no focal deficits. Absent: pronater drift, facial droop, speech deficit - Skin Skin exam: Present: dry, intact
== END 2017-05-12 22:30 | disposition home or self-care (01) | DRG 603 ==
LOC: 3NENU 14:58 → EMEROO 14:58 → 3NENU 22:19
PROVIDERS: ADMIT Hospitalist; ATTEND Internal Medicine
PROC: ENDOEBX (2017-05-11 18:00)